=== PATIENT | female | born 1995 | race Caucasian/White ===

== ENCOUNTER 2017-04-15 12:11 | Emergency (ER) | payer SELFPAY ==
[~2017-04-15] VITALS: Ht 170.2 cm; Wt 63.5 kg
[~2017-04-15 12:11] MED LIST: ACHD5005 PO; AMOX500C2 PO; AZIT-21 PO; MAGN500C15 PO; MECL-124 PO; NAPR-243 PO; NITR-65 PO; ONDA8TAB13 PO; PHEN100T26 PO; PRM25T PO; SULF-222 PO; TOPI50TA37 PO; TRAM50TA2 PO; TRM50T PO; [UNRECOGNIZED DRUG - REMARK]; birth control
--- OUTSIDE RECORDS SUMMARY | 2017-04-15 12:16 | XMS REPORT ---
Author CHAYITO [facility] eClinicalWorks Address Unknown Phone Unavailable Care Team Providers Care Company Manager Name Role Phone CHAYITO CORONADO Unavailable Allergies No Known Allergies Problems Problem Type Condition Code Onset Dates Condition Status Assessment Screening for tuberculosis Z11.1 Active Medications No Known Medications Procedures Procedure Coding System Code Date TB INTRADERMAL TEST CPT-4 20526 Mar 11, 2015 Results No Known Results Summary Purpose eClinicalWorks Submission
--- OUTSIDE RECORDS SUMMARY | 2017-04-15 12:16 | XMS REPORT ---
Author Author CHAYITO CORONADO [facility] Address [address] [place] [address] Care Team Providers Care Liquor Clerk Name Role Phone CHAYITO CORONADO Unavailable PROBLEMS Unknown Problems ALLERGIES No Information SOCIAL HISTORY Never Assessed PLAN OF CARE VITAL SIGNS MEDICATIONS No Known Medications RESULTS No Results PROCEDURES Procedure Date Ordered Result Body Site FLUARIX QUAD P-FREE 3 AND UP .50 2015Jun 01, 2016 SINGLE IMMUNIZATION ADMIN Jun 01, 2016 IMMUNIZATIONS Vaccine Route Administration Date Status FLUARIX QUAD P-FREE 3 AND UP .50 2015 IM Intramuscular Jun 01, 2016 Administered MEDICAL (GENERAL) HISTORY Type Description Date Medical History Migraines Surgical History Neck surgery to remove tumors 2008 Hospitalization History Surgery
--- OUTSIDE RECORDS SUMMARY | 2017-04-15 12:16 | XMS REPORT ---
Author Author CHAYITO CORONADO [facility] Address [address] [place] [address] Care Team Providers Care Manager Division Name Role Phone CHAYITO CORONADO Unavailable PROBLEMS Unknown Problems ALLERGIES No Known Allergies SOCIAL HISTORY No smoking Hx information available PLAN OF CARE Activity Details Follow Up 48-72 hours Reason: VITAL SIGNS MEDICATIONS No Known Medications RESULTS No Results PROCEDURES Procedure Date Ordered Related Diagnosis Body Site TB INTRADERMAL 2016-04-20 N/A TB INTRADERMAL TEST Apr 20, 2016 IMMUNIZATIONS No Known Immunizations
--- OUTSIDE RECORDS SUMMARY | 2017-04-15 12:16 | XMS REPORT | Clinical Summary ---
Author Author [facility] Address Unknown Phone Unavailable Care Team Providers Care Print Decorator Name Role Phone PCP Unavailable Source Comments Some departments are not documenting in the electronic medical record. If you do not see the information that you expected, contact Release of Information in the Health Information Management department at [phone] for further assistance in locating additional records.[facility] Allergies No Known Allergies Current Medications Prescription Sig. Disp. Refills Start End Date Status Date ACETAMINOPHEN (TYLENOL Take by mouth As Needed. Active PO) magnesium oxide (MAG-OX) Take 1 Tab by mouth 30 Tab 6 05/15/19 Active 400 mg tabletIndications: daily. 16 Intractable chronic migraine without aura and without status migrainosus SUMAtriptan (IMITREX) 50 TAKE 1 TABLET BY MOUTH AT 10 Tab 2 07/22/19 Active mg tabletIndications: ONSET OF HEADACHE. REPEAT 16 Intractable chronic ONCE AFTER 2 HOURS migraine without aura and NEEDED. TAKE NO MORE THAN without status 2 TABLETS IN 24 HOURS migrainosus topiramate (TOPAMAX) 50 Take 1.5 Tabs by mouth 270 Tab 0 08/09/19 Active mg tabletIndications: twice daily. 17 Intractable chronic migraine without aura and without status migrainosus desogestrel-ethinyl Take 1 tablet by mouth Active estradiol (DESOGEN; daily. ORTHO-CEPT (28); APRI; SOLIA; RECLIPSEN (28); EMOQUETTE) tablet Active Problems Problem Noted Date Chronic migraine without aura without status migrainosus, not intractable Abnormal MRI, cervical spine 12/30/2015 Loss of weight 12/30/2015 Neck mass 01/05/2009 Family History Relation Name Status Comments Brother Alive Father Alive Mother Alive Sister Alive Social History Tobacco Use Types Packs/Day Years Used Date Never Smoker Smokeless Tobacco: Never Used Tobacco Cessation: Counseling Given: No Alcohol Use Drinks/Week oz/Week Comments No 0 Standard 0.0 drinks or equivalent Sex Assigned at Date Recorded Not on file Last Filed Vital Signs Vital Sign Reading Time Taken Blood Pressure 101/58 01/04/2017 9:28 AM CDT Pulse 62 01/04/2017 9:28 AM CDT Temperature 37 C (98.6 F) 01/04/2017 9:28 AM CDT Respiratory Rate 16 01/04/2017 9:28 AM CDT Oxygen Saturation 99% 01/04/2017 9:28 AM CDT Inhaled Oxygen - - Concentration Weight 71.2 kg (157 lb) 01/04/2017 9:28 AM CDT Height 170.2 cm (5' 7") 01/04/2017 9:28 AM CDT Body Mass Index 24.59 01/04/2017 9:28 AM CDT Plan of Treatment Health Maintenance Due Date Last Done Comments PHYSICAL (COMPREHENSIVE) 2004 EXAM HPV VACCINES (1 of 3 - 2008 Female 3 Dose Series) PERTUSSIS VACCINE 2008 TETANUS VACCINE 2014 INFLUENZA VACCINE 11/08/2016 Results Not on filefrom Last 3 Months
--- OUTSIDE RECORDS SUMMARY | 2017-04-15 12:16 | XMS REPORT | Continuity of Care Document ---
Author Author [facility] Address Unknown Phone Unavailable Care Team Providers Care Program Scheduler Name Role Phone [facility] Unavailable Unavailable Problems Medications Allergies, Adverse Reactions, Alerts Immunizations Results Vital Signs Encounters Location Location Details Encounter Type Encounter Number Reason For Visit Attending Provider ADM Date DC Date Status Source OUTPATIENT [id number] PLACIDO BENAVIDES 06/13/20152015 Active [facility] OUTPATIENT [id number] PLACIDO BENAVIDES 01/04/2017 Active [facility] O 01/07/2017 Active [facility] OUTPATIENT [id number] PLACIDO BENAVIDES 01/07/20172016 Active [facility] Procedures Plan of Care Social History Assessment and Plan Family History Advance Directives Functional Status
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
--- NOTE | 2017-04-15 12:24 | ED General ---
General Chief Complaint: Abdominal/GI Problems Stated Complaint: N/V Source of Information: Patient Exam Limitations: No Limitations History of Present Illness Time Seen by Provider: 12:23 Initial Comments To ER with nausea and vomiting for 3 months. Symptoms are worse today. She denies diarrhea or abdominal pain. She denies cough. She reports unintentional weight loss of 80-90 pounds over the past 6-7 months. She smokes one pack of cigarettes per day. She has not followed up with her primary care provider for this because her mother who accompanies her states "she doesn't have a doctor". She is adopted and does not know her family history. Timing/Duration: Other (months) Severity: Moderate Associated Systoms: Nausea/Vomiting Allergies and Home Medications Allergies Coded Allergies: No Known Drug Allergies (Unverified , 10/04/08) Home Medications Ondansetron 8 Mg Tab.rapdis, 8 MG PO Q6H PRN for NAUSEA/VOMITING-1ST LINE, #10 Ref 0 Prescribed by: PATRICIO LEDBETTER on 02/18/17 1837 Constitutional: see HPI EENTM: see HPI Respiratory: no symptoms reported Cardiovascular: no symptoms reported Genitourinary: no symptoms reported Musculoskeletal: no symptoms reported Skin: no symptoms reported Psychiatric/Neurological: No Symptoms Reported Hematologic/Lymphatic: No Symptoms Reported Past Colcxxl-Rswdbg-Huntml Hx Patient Social History Type Used: Cigarettes Recent Foreign Travel: No Contact w/Someone Who Travel: No Recent Hopitalizations: No Immunizations Up To Date Tetanus Booster (TDap): Less than 5yrs PED Vaccines UTD: Yes Seasonal Allergies Seasonal Allergies: No Surgeries History of Surgeries: Yes (C 3-7 TUMOR REMOVAL) Respiratory History of Respiratory Disorde: No Cardiovascular History of Cardiac Disorders: No Neurological History of Neurological Disord: Yes (NEUROFIBROMYTOSIS) Neurological Disorders: Headaches /Migraines Reproductive System Hx Reproductive Disorders: No Sexually Transmitted Disease: No Genitourinary Genitourinary Disorders: UTI-Chronic Gastrointestinal History of Gastrointestinal Di: No Musculoskeletal History of Musculoskeletal Dis: No Endocrine History of Endocrine Disorders: No Cancer History of Cancer: No Psychosocial History of Psychiatric Problem: No Integumentary History of Skin or Integumenta: No Blood Transfusions History of Blood Disorders: No Family Medical History Significant Family History: No Pertinent Family Hx Physical Exam Vital Signs Vital Sign - Last 12Hours 04/15/17 12:12 Temp 96.6 Pulse 83 Resp 18 B/P (MAP) 121/86 Capillary Refill : General Appearance: No Apparent Distress, WD/WN Eyes: Bilateral Eye Normal Inspection, Bilateral Eye PERRL, Bilateral Eye EOMI HEENT: PERRL/EOMI, TMs Normal Neck: Full Range of Motion, Normal Inspection Respiratory: Normal Breath Sounds, No Accessory Muscle Use, No Respiratory Distress Cardiovascular: Regular Rate, Rhythm, Normal Peripheral Pulses Gastrointestinal: Normal Bowel Sounds, Non Tender, Soft Extremity: Normal Capillary Refill, Normal Inspection Neurologic/Psychiatric: Alert, Oriented x3, No Motor/Sensory Deficits Skin: Normal Color, Warm/Dry Progress/Results/Core Measures Suspected Sepsis SIRS Temperature: Pulse: Respiratory Rate: Laboratory Tests 04/15/17 12:15: White Blood Count 10.1 Blood Pressure / Mean: Laboratory Tests 04/15/17 12:15: Creatinine 0.64, Platelet Count 240, Total Bilirubin 0.5 Results/Orders Lab Results Laboratory Tests Test 04/15/17 12:15 04/15/17 12:21 Range/Units White Blood Count 10.1 4.3-11.0 10^3/uL Red Blood Count 4.75 4.35-5.85 10^6/uL Hemoglobin 13.8 11.5-16.0 G/DL Hematocrit 37 35-52 % Mean Corpuscular Volume 78 L 80-99 FL Mean Corpuscular Hemoglobin 29 25-34 PG Mean Corpuscular Hemoglobin Concent 37 H 32-36 G/DL Red Cell Distribution Width 13.4 10.0-14.5 % Platelet Count 240 130-400 10^3/uL Mean Platelet Volume 10.0 7.4-10.4 FL Neutrophils (%) (Auto) 70 42-75 % Lymphocytes (%) (Auto) 22 12-44 % Monocytes (%) (Auto) 6 0-12 % Eosinophils (%) (Auto) 2 0-10 % Basophils (%) (Auto) 0 0-10 % Neutrophils # (Auto) 7.1 1.8-7.8 X 10^3 Lymphocytes # (Auto) 2.2 1.0-4.0 X 10^3 Monocytes # (Auto) 0.6 0.0-1.0 X 10^3 Eosinophils # (Auto) 0.2 0.0-0.3 10^3/uL Basophils # (Auto) 0.0 0.0-0.1 10^3/uL Sodium Level 139 135-145 MMOL/L Potassium Level 3.3 L 3.6-5.0 MMOL/L Chloride Level 106 98-107 MMOL/L Carbon Dioxide Level 22 21-32 MMOL/L Anion Gap 11 5-14 MMOL/L Blood Urea Nitrogen 5 L 7-18 MG/DL Creatinine 0.64 0.60-1.30 MG/DL Estimat Glomerular Filtration Rate > 60 BUN/Creatinine Ratio 8 Glucose Level 94 70-105 MG/DL Calcium Level 9.2 8.5-10.1 MG/DL Total Bilirubin 0.5 0.1-1.0 MG/DL Aspartate Amino Transf (AST/SGOT) 11 5-34 U/L Alanine Aminotransferase (ALT/SGPT) 8 0-55 U/L Alkaline Phosphatase 56 40-136 U/L Total Protein 6.6 6.4-8.2 GM/DL Albumin 3.8 3.2-4.5 GM/DL Lipase 20 8-78 U/L Thyroid Stimulating Hormone (TSH) 1.74 0.35-4.94 UIU/ML Free Thyroxine 1.24 0.70-1.48 NG/DL Human Chorionic Gonadotropin, Quant [id number] H <5 MIU/ML Urine Color YELLOW Urine Clarity SLIGHTLY CLOUDY Urine pH 6 5-9 Urine Specific [place] 1.020 1.016-1.022 Urine Protein 2+ H NEGATIVE Urine Glucose (UA) NEGATIVE NEGATIVE Urine Ketones 1+ H NEGATIVE Urine Nitrite NEGATIVE NEGATIVE Urine Bilirubin NEGATIVE NEGATIVE Urine Urobilinogen 1 NORMAL MG/DL Urine Leukocyte Esterase 1+ H NEGATIVE Urine RBC (Auto) NEGATIVE NEGATIVE Urine RBC NONE /HPF Urine WBC 5-10 H /HPF Urine Squamous Epithelial Cells 5-10 /HPF Urine Crystals NONE /LPF Urine Bacteria LARGE H /HPF Urine Casts PRESENT /LPF Urine White Blood Cell Casts 0-2 H /LPF Urine Mucus LARGE H /LPF Urine Culture Indicated YES Urine Opiates Screen NEGATIVE NEGATIVE Urine Oxycodone Screen NEGATIVE NEGATIVE Urine Methadone Screen NEGATIVE NEGATIVE Urine Propoxyphene Screen NEGATIVE NEGATIVE Urine Barbiturates Screen NEGATIVE NEGATIVE Ur Tricyclic Antidepressants Screen NEGATIVE NEGATIVE Urine Phencyclidine Screen NEGATIVE NEGATIVE Urine Amphetamines Screen NEGATIVE NEGATIVE Urine Methamphetamines Screen NEGATIVE NEGATIVE Urine Benzodiazepines Screen NEGATIVE NEGATIVE Urine Cocaine Screen NEGATIVE NEGATIVE Urine Cannabinoids Screen POSITIVE H NEGATIVE My Orders Orders - DEZ DURAN APRN Cbc With Automated Diff (04/15/17 12:20) Comprehensive Metabolic Panel (04/15/17 12:20) Lipase (04/15/17 12:20) Ua Culture If Indicated (04/15/17 12:20) Urine Bedside (04/15/17 12:20) Thyroid Stimulating Hormone (04/15/17 12:20) Free T4 (Free Thyroxine) (04/15/17 12:20) Drug Screen Stat (Urine) (04/15/17 12:20) Saline Lock/Iv-Start (04/15/17 12:20) Ns Iv 1000 Ml (Sodium Chloride 0.9%) (04/15/17 12:30) Ondansetron Injection (Zofran Injectio (04/15/17 12:30) Hcg,Quantitative (04/15/17 12:27) Urine Culture (04/15/17 12:21) Us Ob Single Fetus<14 [id number] (04/15/17 12:27) Medications Given in ED Current Medications Medications Dose Ordered Sig/Suzette Route Start Time Stop Time Status Last Admin Dose Admin Ondansetron HCl 8 mg ONCE ONCE IVP 04/15/17 12:30 04/15/17 12:31 DC 04/15/17 12:40 8 MG Vital Signs/I&O Vital Sign - Last 12Hours 04/15/17 12:12 Temp 96.6 Pulse 83 Resp 18 B/P (MAP) 121/86 Capillary Refill : Departure Impression Impression: Primary Impression: Intrauterine Additional Impressions: Urinary tract infection Unintentional weight loss Disposition: 01 HOME, SELF-CARE Condition: Stable Departure-Patient Inst. Decision time for Depature: 13:16 Referrals: ALYX REECE JOHN M MD (PCP/Family) Primary Care Physician SIRISHA LYON MD, ANGELA C DO Patient Instructions: Medications and , Nausea and Vomiting of Add. Discharge Instructions: 1. You must call a physician on Monday to make an appointment to be seen within the next few weeks. You should consider today to have been your last day of cigarettes and marijuana smoking, do not smoke anything from this point on. Go to [employer] and purchase an nwbn-uan-[id number] vitamin and take this daily as directed. If you have daily nausea U should combine vitamin B 6 and Unisom. Scripts Cephalexin (Keflex) 500 Mg Capsule 500 MG PO TID, #21 CAP Prov: DEZ DURAN APRN 04/15/17 Work/School Note: Local [employer]ing DEZ DURAN APRN Apr 15, 2017 12:24
[2017-04-15 12:28] LABS: BASOPHILS % (AUTO) 0 % (0-10); EOSINOPHILS # (AUTO) 0.2 10^3/uL (0.0-0.3); EOSINOPHILS % (AUTO) 2 % (0-10); HEMATOCRIT 37 % (35-52); HEMOGLOBIN 13.8 G/DL (11.5-16.0); LYMPHOCYTES # (AUTO) 2.2 X 10^3 (1.0-4.0); LYMPHOCYTES % (AUTO) 22 % (12-44); MEAN CORPUSCULAR HEMOGLOBIN 29 PG (25-34); MEAN CORPUSCULAR HGB CONC 37 G/DL (32-36); MEAN CORPUSCULAR VOLUME 78 FL (80-99); MONOCYTES # (AUTO) 0.6 X 10^3 (0.0-1.0); MONOCYTES % (AUTO) 6 % (0-12); NEUTROPHILS # (AUTO) 7.1 X 10^3 (1.8-7.8); NEUTROPHILS % (AUTO) 70 % (42-75); PLATELET COUNT 240 10^3/uL (130-400); RED BLOOD COUNT 4.75 10^6/uL (4.35-5.85); RED CELL DISTRIBUTION WIDTH 13.4 % (10.0-14.5); WHITE BLOOD COUNT 10.1 10^3/uL (4.3-11.0)
[2017-04-15] MEDS ORDERED: NS IV 1000 ML 1,000 ML IV SCH (12:30)
[2017-04-15] MEDS ORDERED: ONDANSETRON 4 MG/2 ML (SDV) Z0FRAN IVP ONE (12:30)
[2017-04-15 12:38] LABS: BILIRUBIN,URINE NEGATIVE (NEGATIVE); CLARITY,URINE SLIGHTLY CLOUDY; COLOR,URINE YELLOW; GLUCOSE, URINE (UA) NEGATIVE (NEGATIVE); KETONES,URINE 1+ (NEGATIVE); LEUKOCYTE ESTERASE ,URINE 1+ (NEGATIVE); NITRITE,URINE NEGATIVE (NEGATIVE); PH,URINE 6 (5-9); PROTEIN,URINE 2+ (NEGATIVE); UROBILINOGEN,URINE 1 MG/DL (NORMAL)
[2017-04-15 12:49] LABS: ALANINE AMINOTRANSFERASE 8 U/L (0-55); ALBUMIN 3.8 GM/DL (3.2-4.5); ALKALINE PHOSPHATASE 56 U/L (40-136); BILIRUBIN,TOTAL 0.5 MG/DL (0.1-1.0); BUN/CREATININE RATIO 8; CALCIUM 9.2 MG/DL (8.5-10.1); CARBON DIOXIDE 22 MMOL/L (21-32); CHLORIDE 106 MMOL/L (98-107); CREATININE SERUM 0.64 MG/DL (0.60-1.30); GFR ESTIMATED > 60; GLUCOSE 94 MG/DL (70-105); LIPASE 20 U/L (8-78); POTASSIUM 3.3 MMOL/L (3.6-5.0); SODIUM 139 MMOL/L (135-145); TOTAL PROTEIN 6.6 GM/DL (6.4-8.2)
[2017-04-15 12:51] LABS: AMPHETAMINE SCREEN, URINE NEGATIVE (NEGATIVE); BARBITURATE SCREEN URINE NEGATIVE (NEGATIVE); BENZODIAZEPINES SCREEN URINE NEGATIVE (NEGATIVE); CANNABINOID SCREEN, URINE POSITIVE (NEGATIVE); COCAINE SCREEN URINE NEGATIVE (NEGATIVE); METHADONE STAT NEGATIVE (NEGATIVE); METHAMPHETAMINE SCREEN URINE S NEGATIVE (NEGATIVE); OPIATE SCREEN URINE NEGATIVE (NEGATIVE); OXYCODONE STAT NEGATIVE (NEGATIVE); PROPOXYPHENE STAT NEGATIVE (NEGATIVE); TRICYCLIC ANTIDEPRESSANTS SCRE NEGATIVE (NEGATIVE)
[2017-04-15 12:52] LABS: BACTERIA,URINE LARGE /HPF; WHITE BLOOD CELL CASTS, URINE 0-2 /LPF
[2017-04-15 13:09] LABS: FREE T4 (FREE THYROXINE) 1.24 NG/DL (0.70-1.48)
[2017-04-15] MEDS ORDERED: CEPH-507 PO (13:20)
--- NOTE | 2017-04-15 13:29 | Diagnostic Imaging Report ---
PROCEDURE: US OB SINGLE FETUS <14 WKS. TECHNIQUE: Multiple real-time grayscale images were obtained over the gravid uterus in various projections. INDICATION: Cramping. FINDINGS: There is a single living intrauterine . [place]-rump length is 2.43 cm. This correlates with gestational age of 9 weeks 2 days. Heart rate is 158 beats per minute and regular. Neither ovary was visualized. There are no adnexal masses. No free pelvic fluid. There appears to be normal volume of amniotic fluid. IMPRESSION: Single living intrauterine with sonographically estimated gestational age of 9 weeks 2 days and estimated date of confinement of 11/16/2017. Dictated by: Dictated on workstation # [id number]
== END 2017-04-15 13:31 | disposition home or self-care (01) ==
LOC: EDUNIT# 12:11 → ER 12:12
DX: O23.41 Unspecified infection of urinary tract in pregnancy, first trimester (principal); O99.89 Other specified diseases and conditions complicating pregnancy, childbirth and the puerperium; R63.4 Abnormal weight loss; O99.351 Diseases of the nervous system complicating pregnancy, first trimester; G43.909 Migraine, unspecified, not intractable, without status migrainosus; O99.331 Smoking (tobacco) complicating pregnancy, first trimester; F17.210 Nicotine dependence, cigarettes, uncomplicated; Z3A.09 9 weeks gestation of pregnancy; Z86.03 Personal history of neoplasm of uncertain behavior; Z98.890 Other specified postprocedural states
CPT/HCPCS: 36415; 76801; 80053; 80306; 81000; 83690; 84439; 84443; 84702; 84703; 85025; 87088

== ENCOUNTER → 2017-06-27 | Outpatient (CLI) | payer MEDICAID ==
[~2017-06-27] MED LIST changes: +CEPH-507 PO
--- NOTE | 2017-06-27 14:15 | Diagnostic Imaging Report ---
INDICATION: . TECHNIQUE: Multiple real-time grayscale images were obtained over the gravid uterus. COMPARISON: 04/15/2017. FINDINGS: The previous exam of 04/15/2017 noted a single live of approximately 9 weeks 2 days gestation +/-1 week. On this study, the fetus is again identified. The fetus is cephalic in presentation. heart motion was noted and a rate of 146 BPM was recorded. There were no abnormalities identified. The growth parameters are fairly uniform and have progressed as expected since the prior exam. The estimated weight is in the 40th percentile. The placenta is posterior and there is no previa. The amniotic fluid volume is within normal limits. IMPRESSION: 1. There is a single live fetus of approximately 19 weeks 5 days gestation +/-1 week. The EDC remains November 16, 2017. 2. There were no abnormalities identified. 3. The growth parameters have progressed as expected since the prior exam. Biometrical measurements are as follows: Biparietal 4.46 cm, age 19 weeks 4 days. Head circumference 16.60 cm, age 19 weeks 3 days. Abdominal circumference 14.10 cm, age 19 weeks 4 days. Femur length 3.08 cm, age 19 weeks 4 days. Sonographic estimate age: 19 weeks 4 days. Sonographic estimated date of delivery: 11-17-2017. Estimated Weight: 295 gm (+/- 43 gm). LMP percentile: 40%. heart rate: 146 beats per minute. number: 1 of 1. Dictated by: Dictated on workstation # [id number]
== END ==
LOC: RAD 12:58
PROVIDERS: ATTEND Obstetrics & Gynecology
DX: Z34.92 Encounter for supervision of normal pregnancy, unspecified, second trimester (principal); Z3A.19 19 weeks gestation of pregnancy
CPT/HCPCS: 76805

== ENCOUNTER 2017-10-24 22:12 | Inpatient (IN) | payer MEDICAID ==
[~2017-10-24] VITALS: Ht 170.2 cm; Wt 81.4 kg
[2017-10-24 22:30] VITALS: BP 114/78
[2017-10-24 22:43] LABS: BILIRUBIN,URINE NEGATIVE (NEGATIVE); CLARITY,URINE CLEAR; COLOR,URINE YELLOW; GLUCOSE, URINE (UA) NEGATIVE (NEGATIVE); KETONES,URINE NEGATIVE (NEGATIVE); LEUKOCYTE ESTERASE ,URINE NEGATIVE (NEGATIVE); NITRITE,URINE NEGATIVE (NEGATIVE); PH,URINE 6.5 (5-9); PROTEIN,URINE NEGATIVE (NEGATIVE); UROBILINOGEN,URINE NORMAL (NORMAL)
[2017-10-24] MEDS ORDERED: AMPICILLIN INJECTION 2,000 MG in NS (IVPB) 50 ML IV SCH (22:46)
[2017-10-24] MEDS ORDERED: NS (IVPB) 50 ML ONE (22:49)
[2017-10-24] MEDS ORDERED: AMPICILLIN 2000 MG INJECTION (IM/IV) ONE (22:49)
[2017-10-24 22:51] LABS: BACTERIA,URINE TRACE /HPF; RBC,URINE 0-2 /HPF
[2017-10-24] MEDS ORDERED: MINERAL OIL CONCENTRATE 99.9% 15 ML UDC TOP PRN (23:00)
[2017-10-24] MEDS: D5 LR IV SOLUTION 1,000 ML IV SCH (23:12)
[2017-10-24 23:19] LABS: BASOPHILS % (AUTO) 0 % (0-10); EOSINOPHILS # (AUTO) 0.2 10^3/uL (0.0-0.3); EOSINOPHILS % (AUTO) 2 % (0-10); HEMATOCRIT 34 % (35-52); HEMOGLOBIN 11.9 G/DL (11.5-16.0); LYMPHOCYTES # (AUTO) 2.4 X 10^3 (1.0-4.0); LYMPHOCYTES % (AUTO) 26 % (12-44); MEAN CORPUSCULAR HEMOGLOBIN 30 PG (25-34); MEAN CORPUSCULAR HGB CONC 35 G/DL (32-36); MEAN CORPUSCULAR VOLUME 88 FL (80-99); MEAN PLATELET VOLUME 10.8 FL (7.4-10.4); MONOCYTES # (AUTO) 0.8 X 10^3 (0.0-1.0); MONOCYTES % (AUTO) 8 % (0-12); NEUTROPHILS # (AUTO) 5.8 X 10^3 (1.8-7.8); NEUTROPHILS % (AUTO) 63 % (42-75); PLATELET COUNT 212 10^3/uL (130-400); RED BLOOD COUNT 3.91 10^6/uL (4.35-5.85); RED CELL DISTRIBUTION WIDTH 12.9 % (10.0-14.5); WHITE BLOOD COUNT 9.2 10^3/uL (4.3-11.0)
--- OUTSIDE RECORDS SUMMARY | 2017-10-24 23:51 | XMS REPORT ---
Author Author CONSTANTINE ARCEO Organization [facility] Address [address] [place] [address] Care Team Providers Care Greenhouse Assistant Name Role Phone CONSTANTINE ARCEO Unavailable PROBLEMS Unknown Problems ALLERGIES No Information ENCOUNTERS Encounter Location Date Diagnosis [facility] [id number] [place] [phone] May, [facility] [id number] [place] [phone] Oct, Sore throat J02.9 and Strep pharyngitis J02.0 [facility] [id number] [place] [phone] May, Encounter for immunization Z23 [facility] [id number] [place] [phone] Apr, Visit for TB skin test Z11.1 and Screening for tuberculosis Z11.1 [facility] [id number] [place] [phone] Jul, Bronchitis J40 [facility] [address] [place], [place] [id number] [place] [phone] Mar, Screening for tuberculosis Z11.1 IMMUNIZATIONS No Known Immunizations SOCIAL HISTORY Never Assessed REASON FOR VISIT Presumptive Eligibility-APPROVED PLAN OF CARE VITAL SIGNS MEDICATIONS Unknown Medications RESULTS No Results PROCEDURES No Known procedures INSTRUCTIONS MEDICATIONS ADMINISTERED No Known Medications MEDICAL (GENERAL) HISTORY Type Description Date Medical History Migraines Surgical History Neck surgery to remove tumors 2008 Hospitalization History Surgery
--- OUTSIDE RECORDS SUMMARY | 2017-10-24 23:51 | XMS REPORT | Clinical Summary ---
Author Author [facility] Organization [facility] Address Unknown Phone Unavailable Care Team Providers Care Log Loader Name Role Phone Joaquin Emery MD Unavailable Humberto Merino MD Unavailable Manny De Luna MD PCP Brayden Garrison DO Unavailable Source Comments Some departments are not documenting in the electronic medical record. If you do not see the information that you expected, contact Release of Information in the Health Information Management department at [phone] for further assistance in locating additional records.[facility] Allergies No Known Allergies Current Medications Prescription [...] Female 3 Dose Series) PERTUSSIS VACCINE 2008 HIV SCREENING 2012 TETANUS VACCINE 2014 INFLUENZA VACCINE 01/08/2018 Results Not on filefrom Last 3 Months
--- OUTSIDE RECORDS SUMMARY | 2017-10-24 23:51 | XMS REPORT ---
Author Author BAUTISTA VAN Organization [facility] Address [address] [place] [address] Care Team Providers Care Spray Cementer Name Role Phone BAUTISTA VAN Unavailable PROBLEMS Unknown Problems ALLERGIES No Known Allergies ENCOUNTERS Encounter Location Date Diagnosis [facility] [id number] [place] [phone] May, [facility] [id number] [place] [phone] Oct, Sore throat J02.9 and Strep pharyngitis J02.0 [facility] [id number] [place] [phone] May, Encounter for immunization Z23 [facility] [id number] [place] [phone] Apr, Visit for TB skin test Z11.1 and Screening for tuberculosis Z11.1 [facility] [id number] [place] [phone] Jul, Bronchitis J40 [facility] [id number] [place] [phone] Mar, Screening for tuberculosis Z11.1 IMMUNIZATIONS No Known Immunizations SOCIAL HISTORY Never Assessed REASON FOR VISIT sore throat for a couple days JStrasserRN PLAN OF CARE Activity Details Follow Up prn Reason: VITAL SIGNS Height 67 in 2016-10-13 Weight 165.2 lbs 2016-10-13 Temperature 97.2 degrees Fahrenheit 2016-10-13 Heart Rate 84 bpm 2016-10-13 Respiratory Rate 20 2016-10-13 BMI 25.87 kg/m2 2016-10-13 Blood pressure systolic 110 mmHg 2016-10-13 Blood pressure diastolic 80 mmHg 2016-10-13 MEDICATIONS Medication Instructions Dosage Frequency Start Date End Date Duration Status Magnesium 500 MG Orally Once a day 1 tablet with a meal 24h Active Amoxicillin 500 MG Orally every 12 hrs 1 capsule 12h Oct, Oct, 10 day(s) Active RESULTS Name Result Date Reference Range STREP A (IN HOUSE) 2016-10-13 STREP A Control Lot # Exp date PROCEDURES Procedure Date Ordered Result Body Site STREP A ASSAY W/OPTIC October 13, 2016 INSTRUCTIONS MEDICATIONS ADMINISTERED No Known Medications MEDICAL (GENERAL) HISTORY Type Description Date Medical History Migraines Surgical History Neck surgery to remove tumors 2008 Hospitalization History Surgery
--- OUTSIDE RECORDS SUMMARY | 2017-10-24 23:52 | XMS REPORT | Continuity of Care Document ---
Author Author [facility] Organization [facility] Address Unknown Phone Unavailable Allergies Active Description Code Type Severity Reaction Onset Reported/Identified Relationship to Patient Clinical Status Yes No Known Drug Allergies [id number] Drug Allergy Mild N/A 10/04/2008 Medications There [...] Ot E958.8 SUICIDE/SELF-INJURY NEC 02/14/2013 DEZ DURAN PVC LOADER Ot 595.9 CYSTITIS NOS 02/14/2013 DEZ DURAN PVC LOADER Ot 788.1 DYSURIA 08/15/2013 DEZ DURAN PVC LOADER Ot 462 ACUTE PHARYNGITIS 05/13/2014 KATHERINE EM DO Ot 462 ACUTE PHARYNGITIS 08/04/2014 DEZ DURAN PVC LOADER Ot 682.3 CELLULITIS OF ARM 08/04/2014 DEZ DURAN PVC LOADER Ot 709.8 SKIN DISORDERS NEC 04/13/2015 ELIZABETH REED, PING Smith Ot G43.819 03/22/2016 PING JOHNSON MD Ot [...] Ot Y99.8 OTHER EXTERNAL CAUSE STATUS 02/18/2017 PING JOHNSON MD Ot G43.819 OTHER MIGRAINE, INTRACTABLE, WITHOUT STA 02/18/2017 PATRICIO CORTEZ Ot F17.210 NICOTINE DEPENDENCE, CIGARETTES, UNCOMPL 02/18/2017 PATRICIO CORTEZ Ot G43.909 MIGRAINE, UNSP, NOT INTRACTABLE, WITHOUT 02/18/2017 PATRICIO CORTEZ Ot R10.84 GENERALIZED ABDOMINAL PAIN 02/18/2017 PATRICIO CORTEZ Ot R11.2 NAUSEA WITH VOMITING, UNSPECIFIED 02/18/2017 PATRICIO CORTEZ Ot Z87.440 PERSONAL HISTORY OF URINARY (TRACT) INFE 04/15/2017 DEZ DURAN APRN Ot F17.210 NICOTINE DEPENDENCE, CIGARETTES, UNCOMPL 04/15/2017 DEZ DURAN APRN Ot G43.909 MIGRAINE, UNSP, NOT INTRACTABLE, WITHOUT 04/15/2017 DEZ DURAN APRN Ot O23.41 UNSP INFCT OF URINARY TRACT IN 04/15/2017 DEZ DURAN APRN Ot O99.331 SMOKING (TOBACCO) COMPLICATING 04/15/2017 DEZ DURAN APRN Ot O99.351 DISEASES OF THE NERVOUS SYS COMP PREGNAN 04/15/2017 DEZ DURAN APRN Ot O99.89 OTH DISEASES AND CONDITIONS COMPL PREG/C 04/15/2017 DEZ DURAN APRN Ot R11.2 NAUSEA WITH VOMITING, UNSPECIFIED 04/15/2017 DEZ DURAN APRN Ot R63.4 ABNORMAL WEIGHT LOSS 04/15/2017 DEZ DURAN APRN Ot Z3A.09 9 WEEKS GESTATION OF 04/15/2017 DEZ DURAN APRN Ot Z86.03 PERSONAL HISTORY OF NEOPLASM OF UNCERTAI 04/15/2017 DEZ DURAN APRN Ot Z98.890 OTHER SPECIFIED POSTPROCEDURAL STATES 04/17/2017 DEZ DURAN APRN Ot O23.41 UNSP INFCT OF URINARY TRACT IN 04/17/2017 DEZ DURAN APRN Ot O99.89 OTH DISEASES AND CONDITIONS COMPL PREG/C 04/17/2017 DEZ DURAN APRN Ot R11.2 NAUSEA WITH VOMITING, UNSPECIFIED 04/17/2017 DEZ DURAN APRN Ot R63.4 ABNORMAL WEIGHT LOSS 04/17/2017 DEZ DURAN APRN Ot Z3A.09 9 WEEKS GESTATION OF 06/28/2017 FENECH DO, LAYX Yoon Ot Z34.92 ENCNTR FOR SUPRVSN OF NORMAL PREG, UNSP, 06/28/2017 FENECH DO, ALYX S Ot Z3A.19 19 WEEKS GESTATION OF 07/24/2017 FENECH DO, ALYX S Ot Z34.92 ENCNTR FOR SUPRVSN OF NORMAL PREG, UNSP, 07/24/2017 FENECH DO, ALYX Yoon Ot Z3A.19 19 WEEKS GESTATION OF Procedures There is no data. Results Test [...] urinalysis with reflex to culture NO NRG Complete blood count (CBC) with automated white blood cell (WBC) differential - 04/15/17 12:15 Blood leukocytes automated count (number/volume) 10.1 10*3/uL 4.3-11.0 Blood erythrocytes automated count (number/volume) 4.75 10*6/uL 4.35-5.85 Venous blood hemoglobin measurement (mass/volume) 13.8 g/dL 11.5-16.0 Blood hematocrit (volume fraction) 37 % 35-52 Automated erythrocyte mean corpuscular volume 78 [foz_us] 80-99 Automated erythrocyte mean corpuscular hemoglobin (mass per erythrocyte) 29 pg 25-34 Automated erythrocyte mean corpuscular hemoglobin concentration measurement ( mass/volume) 37 g/dL 32-36 Automated erythrocyte distribution width ratio 13.4 % 10.0-14.5 Automated blood platelet count (count/volume) 240 10*3/uL 130-400 Automated blood platelet mean volume measurement 10.0 [foz_us] 7.4-10.4 Automated blood neutrophils/100 leukocytes 70 % 42-75 Automated blood lymphocytes/100 leukocytes 22 % 12-44 Blood monocytes/100 leukocytes 6 % 0-12 Automated blood eosinophils/100 leukocytes 2 % 0-10 Automated blood basophils/100 leukocytes 0 % 0-10 Blood neutrophils automated count (number/volume) 7.1 10*3 1.8-7.8 Blood lymphocytes automated count (number/volume) 2.2 10*3 1.0-4.0 Blood monocytes automated count (number/volume) 0.6 10*3 0.0-1.0 Automated eosinophil count 0.2 10*3/uL 0.0-0.3 Automated blood basophil count (count/volume) 0.0 10*3/uL 0.0-0.1 Comprehensive metabolic panel - 04/15/17 12:15 Serum or plasma sodium measurement (moles/volume) 139 mmol/L 135-145 Serum or plasma potassium measurement (moles/volume) 3.3 mmol/L 3.6-5.0 Serum or plasma chloride measurement (moles/volume) 106 mmol/L 98-107 Carbon dioxide 22 mmol/L 21-32 Serum or plasma anion gap determination (moles/volume) 11 mmol/L 5-14 Serum or plasma urea nitrogen measurement (mass/volume) 5 mg/dL 7-18 Serum or plasma creatinine measurement (mass/volume) 0.64 mg/dL 0.60-1.30 Serum or plasma urea nitrogen/creatinine mass ratio 8 NRG Serum or plasma creatinine measurement with calculation of estimated glomerular filtration rate > NRG Serum or plasma glucose measurement (mass/volume) 94 mg/dL 70-105 Serum or plasma calcium measurement (mass/volume) 9.2 mg/dL 8.5-10.1 Serum or plasma total bilirubin measurement (mass/volume) 0.5 mg/dL 0.1-1.0 Serum or plasma alkaline phosphatase measurement (enzymatic activity/volume) 56 U/L 40-136 Serum or plasma aspartate aminotransferase measurement (enzymatic activity/ volume) 11 U/L 5-34 Serum or plasma alanine aminotransferase measurement (enzymatic activity/volume ) 8 U/L 0-55 Serum or plasma protein measurement (mass/volume) 6.6 g/dL 6.4-8.2 Serum or plasma albumin measurement (mass/volume) 3.8 g/dL 3.2-4.5 Lipase - 04/15/17 12:15 Lipase 20 U/L 8-78 THYROID STIMULATING HORMONE - 04/15/17 12:15 THYROID STIMULATING HORMONE 1.74 u[iU]/mL 0.35-4.94 Serum or plasma thyroxine (T4) free measurement (mass/volume) - 04/15/17 12:15 Serum or plasma thyroxine (T4) free measurement (mass/volume) 1.24 ng/dL 0.70-1.48 Serum or plasma choriogonadotropin measurement (units/volume) - 04/15/17 12:15 Serum or plasma choriogonadotropin measurement (units/volume) 05126 m[iU]/mL <5 Urine drug screening test - 04/15/17 12:21 Urine phencyclidine detection by screening method NEGATIVE NEGATIVE Urine benzodiazepines detection by screening method NEGATIVE NEGATIVE Urine cocaine detection NEGATIVE NEGATIVE Urine amphetamines detection by screening method NEGATIVE NEGATIVE Urine methamphetamine detection by screening method NEGATIVE NEGATIVE Urine cannabinoids detection by screening method POSITIVE NEGATIVE Urine opiates detection by screening method NEGATIVE NEGATIVE Urine barbiturates detection NEGATIVE NEGATIVE Screening urine tricyclic antidepressants detection NEGATIVE NEGATIVE Urine methadone detection by screening method NEGATIVE NEGATIVE Urine oxycodone detection NEGATIVE NEGATIVE Urine propoxyphene detection NEGATIVE NEGATIVE Complete urinalysis with reflex to culture - 04/15/17 12:21 Urine color determination YELLOW NRG Urine clarity determination SLIGHTLY CLOUDY NRG Urine pH measurement by test strip 6 5-9 Specific gravity of urine by test strip 1.020 1.016- 1.022 Urine protein assay by test strip, semi-quantitative 2+ NEGATIVE Urine glucose detection by automated test strip NEGATIVE NEGATIVE Erythrocytes detection in urine sediment by light microscopy NEGATIVE NEGATIVE Urine ketones detection by automated test strip 1+ NEGATIVE Urine nitrite detection by test strip NEGATIVE NEGATIVE Urine total bilirubin detection by test strip NEGATIVE NEGATIVE Urine urobilinogen measurement by automated test strip (mass/volume) 1 mg/dL NORMAL Urine leukocyte esterase detection by dipstick 1+ NEGATIVE Automated urine sediment erythrocyte count by microscopy (number/high power field) NONE NRG Automated urine sediment leukocyte count by microscopy (number/high power field ) [HPF] NRG Bacteria detection in urine sediment by light microscopy LARGE NRG Squamous epithelial cells detection in urine sediment by light microscopy 5-10 NRG Crystals detection in urine sediment by light microscopy NONE NRG Casts detection in urine sediment by light microscopy PRESENT NRG Mucus detection in urine sediment by light microscopy LARGE NRG Complete urinalysis with reflex to culture YES NRG WBC casts detection in urine sediment by light microscopy 0-2 NRG Bacterial urine culture - 04/15/17 12:21 URINE CULTURE RESULTS MORE THAN 3 ISOLATES NRG Complete urinalysis with reflex to culture - 10/24/17 22:15 Urine color determination YELLOW NRG Urine clarity determination CLEAR NRG Urine pH measurement by test strip 6.5 5-9 Specific gravity of urine by test strip 1.010 1.016- 1.022 Urine protein assay by test strip, semi-quantitative NEGATIVE NEGATIVE Urine glucose detection by automated test strip NEGATIVE NEGATIVE Erythrocytes detection in urine sediment by light microscopy 1+ NEGATIVE Urine ketones detection by automated test strip NEGATIVE NEGATIVE Urine nitrite detection by test strip NEGATIVE NEGATIVE Urine total bilirubin detection by test strip NEGATIVE NEGATIVE Urine urobilinogen measurement by automated test strip (mass/volume) NORMAL NORMAL Urine leukocyte esterase detection by dipstick NEGATIVE NEGATIVE Automated urine sediment erythrocyte count by microscopy (number/high power field) [HPF] NRG Automated urine sediment leukocyte count by microscopy (number/high power field ) [HPF] NRG Bacteria detection in urine sediment by light microscopy TRACE NRG Crystals detection in urine sediment by light microscopy NONE NRG Casts detection in urine sediment by light microscopy NONE NRG Mucus detection in urine sediment by light microscopy NEGATIVE NRG Complete urinalysis with reflex to culture NO NRG Complete blood count (CBC) with automated white blood cell (WBC) differential - 10/24/17 23:00 Blood leukocytes automated count (number/volume) 9.2 10*3/uL 4.3-11.0 Blood erythrocytes automated count (number/volume) 3.91 10*6/uL 4.35-5.85 Venous blood hemoglobin measurement (mass/volume) 11.9 g/dL 11.5-16.0 Blood hematocrit (volume fraction) 34 % 35-52 Automated erythrocyte mean corpuscular volume 88 [foz_us] 80-99 Automated erythrocyte mean corpuscular hemoglobin (mass per erythrocyte) 30 pg 25-34 Automated erythrocyte mean corpuscular hemoglobin concentration measurement ( mass/volume) 35 g/dL 32-36 Automated erythrocyte distribution width ratio 12.9 % 10.0-14.5 Automated blood platelet count (count/volume) 212 10*3/uL 130-400 Automated blood platelet mean volume measurement 10.8 [foz_us] 7.4-10.4 Automated blood neutrophils/100 leukocytes 63 % 42-75 Automated blood lymphocytes/100 leukocytes 26 % 12-44 Blood monocytes/100 leukocytes 8 % 0-12 Automated blood eosinophils/100 leukocytes 2 % 0-10 Automated blood basophils/100 leukocytes 0 % 0-10 Blood neutrophils automated count (number/volume) 5.8 10*3 1.8-7.8 Blood lymphocytes automated count (number/volume) 2.4 10*3 1.0-4.0 Blood monocytes automated count (number/volume) 0.8 10*3 0.0-1.0 Automated eosinophil count 0.2 10*3/uL 0.0-0.3 Automated blood basophil count (count/volume) 0.0 10*3/uL 0.0-0.1 Encounters ACCT No. Visit Date/Time Discharge Status Pt. Type Provider Facility Loc./Unit Complaint [id number] 06/27/2017 12:58:00 06/27/2017 23:59:59 CLS Outpatient ALYX REECE DO [facility] RAD Z33.1 [id number] 04/15/2017 12:12:00 04/15/2017 13:31:00 DIS Emergency DEZ DURAN APRN [facility] ER N/V [id number] 02/18/2017 16:44:00 02/18/2017 19:00:00 DIS Emergency PATRICIO CORTEZ [facility] ER STOMACH PAIN/NAUSEA [id number] 03/22/2016 13:50:00 03/22/2016 15:40:00 DIS Emergency PATRICIO CORTEZ [facility] ER RIGHT HAND INJURY [id number] 03/30/2015 16:59:00 03/30/2015 23:59:59 CLS Outpatient PING JOHNSON MD [facility] RAD PERSISTENT MIGRAINE [id number] 08/04/2014 21:22:00 08/04/2014 22:52:00 DIS Emergency DEZ DURAN PVC LOADER [facility] ER SPIDER BITE [id number] 05/13/2014 20:57:00 05/13/2014 22:40:00 DIS Emergency KATHERINE EM DO [facility] ER SORE THROAT [id number] 08/15/2013 21:56:00 08/15/2013 22:09:00 DIS Emergency DEZ DURAN APRN [facility] ER SORE THROAT, L EAR PAIN [id number] 02/14/2013 21:12:00 02/14/2013 23:10:00 DIS Emergency DEZ DURAN APRN [facility] ER PAINFUL URINATION [id number] 02/04/2013 16:50:00 02/04/2013 19:27:00 DIS Emergency PATRICIO CORTEZ [facility] ER KNUCKLE PAIN/SWOLLEN [id number] 08/20/2012 17:01:00 08/20/2012 20:12:00 DIS Emergency PATRICIO CORTEZ [facility] ER FALL POST ACL TEAR [id number] 08/12/2012 13:47:00 08/12/2012 23:59:59 CLS Outpatient [id number] 10/24/2017 22:43:00 ACT Inpatient FRITZ CARLSON DO [facility] LDRP LABOR [id number] 04/18/2012 16:11:00 Document Registration [id number] 03/26/2012 15:35:00 Document Registration [id number] 02/10/2012 17:26:00 Document Registration [id number] 12/26/2011 21:21:00 Document Registration [id number] 07/18/2011 21:05:00 Document Registration [id number] 12/13/2010 14:46:00 Document Registration [id number] 05/16/2017 11:20:00 05/16/2017 23:59:59 [facility] Outpatient [id number] 08/04/2014 21:23:04 ACT Document Registration
[2017-10-25] VITALS (59 sets, daily range): BP systolic 95–138; BP diastolic 53–91
[2017-10-25] MEDS ORDERED: AMPICILLIN INJECTION 1,000 MG in NS (IVPB) 50 ML IV SCH (03:00)
[2017-10-25] MEDS ORDERED: CATHETER FLUSH 10 ML SYR IV SCH ×2 (06:00→22:00)
[2017-10-25] MEDS ORDERED: OXYTOCIN/NORMAL SALINE 500 ML IV ONE (06:44)
[2017-10-25] MEDS ORDERED: OXYTOCIN/NORMAL SALINE 500 ML IV SCH ×2 (06:54→19:40)
[2017-10-25] MEDS: D5 LR IV SOLUTION 1,000 ML IV SCH ×2 (06:58→15:00)
--- NOTE | 2017-10-25 09:06 | History & Physical-OB ---
OB - Chief Complaint & HPI Date/Time Date of Admission: Date of Admission: Oct 24, 2017 at 10:43 pm Time Seen by Provider: 09:00 Chief Complaint/History OB-Reason for Admission/Chief: Rupture of Membranes Hx : 1 Hx Para: 0 Expected Date of Delivery: Nov 17, 2017 Gestational Age in Weeks: 36 Gestational Age in Days: 6 History of Labs B neg Antibody neg RI RPR NR HBsAg NR HIV NR GC GBS neg Allergies and Home Medications Allergies Coded Allergies: No Known Drug Allergies (Unverified , 10/04/08) Home Medications Cephalexin 500 Mg Capsule, 500 MG PO TID Prescribed by: DEZ DURAN on 04/15/17 1320 Ondansetron 8 Mg Tab.rapdis, 8 MG PO Q6H PRN for NAUSEA/VOMITING-1ST LINE Prescribed by: PATRICIO LEDBETTER on 02/18/17 1837 Patient Home Medication List Home Medication List Reviewed: Yes OB - History Hx of Present Care: Yes Ultrasounds: Normal mid trimester US Obstetrical Complications: None Medical Complications: None Delivery History Hx Blood Disorders: No Adverse Rxn to Tranfusion: No Patient Past Medical History neurofibromatosis Social History/Family History HIV/AIDS: No Recent Infectious Disease Expo: No Sexually Transmitted Disease: No Alcohol Use: Denies Use Recreational Drug Use: No Immunizations Hepatitis A: Yes Hepatitis B: Yes Tetanus Booster (TDap): Less than 5yrs OB - Admission Exam Physical Exam Vitals: Vital Signs 10/25/17 10/25/17 10/25/17 00:49 03:10 07:00 Temp 98.0 Pulse 68 Resp 18 B/P (MAP) 108/66 (80) O2 Delivery Room Air HEENT: NCAT Heart: Rhythm Normal Lungs: Clear Abdomen: Gravid Extremities: Normal Reflexes: Normal Cervical Dilatation: 1cm Effacement: 75% Station: -1 Membranes: Intact Amniotic Fluid: Clear Heart Rate: 130's Accelerations: Accelerations Present Decelerations: No Decelerations Short Term Variability: Present Cylinder Tester Variability: Average (6-25) Contractions on Admission: 6-10 Minutes Apart Intensity: Mild Labs Laboratory Tests Test 10/24/17 22:15 10/24/17 23:00 Range/Units Urine Color YELLOW Urine Clarity CLEAR Urine pH 6.5 5-9 Urine Specific [place] 1.010 L 1.016-1.022 Urine Protein NEGATIVE NEGATIVE Urine Glucose (UA) NEGATIVE NEGATIVE Urine Ketones NEGATIVE NEGATIVE Urine Nitrite NEGATIVE NEGATIVE Urine Bilirubin NEGATIVE NEGATIVE Urine Urobilinogen NORMAL NORMAL MG/DL Urine Leukocyte Esterase NEGATIVE NEGATIVE Urine RBC (Auto) 1+ H NEGATIVE Urine RBC 0-2 /HPF Urine WBC 2-5 /HPF Urine Crystals NONE /LPF Urine Bacteria TRACE /HPF Urine Casts NONE /LPF Urine Mucus NEGATIVE /LPF Urine Culture Indicated NO White Blood Count 9.2 4.3-11.0 10^3/uL Red Blood Count 3.91 L 4.35-5.85 10^6/uL Hemoglobin 11.9 11.5-16.0 G/DL Hematocrit 34 L 35-52 % Mean Corpuscular Volume 88 80-99 FL Mean Corpuscular Hemoglobin 30 25-34 PG Mean Corpuscular Hemoglobin Concent 35 32-36 G/DL Red Cell Distribution Width 12.9 10.0-14.5 % Platelet Count 212 130-400 10^3/uL Mean Platelet Volume 10.8 H 7.4-10.4 FL Neutrophils (%) (Auto) 63 42-75 % Lymphocytes (%) (Auto) 26 12-44 % Monocytes (%) (Auto) 8 0-12 % Eosinophils (%) (Auto) 2 0-10 % Basophils (%) (Auto) 0 0-10 % Neutrophils # (Auto) 5.8 1.8-7.8 X 10^3 Lymphocytes # (Auto) 2.4 1.0-4.0 X 10^3 Monocytes # (Auto) 0.8 0.0-1.0 X 10^3 Eosinophils # (Auto) 0.2 0.0-0.3 10^3/uL Basophils # (Auto) 0.0 0.0-0.1 10^3/uL OB - Assessment/Plan/Diagnosis Assessment Assessment: labor, rupture of membranes Admission Dx 21 yo @ 36.6 labor PROM GBS neg Admission Status: Inpatient Order (span 2 midnights) Reason for Inpatient Admission: labor Plan Plan: Expectant Management Induction Method: per Pitocin Protocol ALYX REECE DO Oct 25, 2017 9:06 am
[2017-10-25] MEDS ORDERED: HYDROmorphone 1 MG/ML (DILAUDID) 1 ML SYRINGE IV ONE (14:15)
[2017-10-25] MEDS ORDERED: HYDROmorphone 1 MG/ML (DILAUDID) 1 ML SYRINGE ONE (14:18)
[2017-10-25] MEDS ORDERED: ONDANSETRON 4 MG/2 ML (SDV) Z0FRAN ONE (15:43)
[2017-10-25] MEDS ORDERED: ONDANSETRON 4 MG/2 ML (SDV) Z0FRAN IVP PRN (15:45)
[2017-10-25] MEDS ORDERED: SUFENTA 0.6MCG/ML BUPIVA 0.125 100 ML ONE (16:06)
[2017-10-25] MEDS ORDERED: LACTATED RINGERS 1,000 ML IV ONE ×2 (16:06→22:43)
[2017-10-25] MEDS ORDERED: BUPIVACAINE 0.25% 30 ML (SENSORCAINE) VIAL ONE (16:19)
[2017-10-25] MEDS ORDERED: fentaNYL INJECTION 100 MCG/2 ML AMP ONE (16:19)
[2017-10-25] MEDS ORDERED: LIDOCAINE/EPI 2% 1:200,00 (XYLOCAINE) 10 ML VIAL ONE (19:14)
--- NOTE | 2017-10-25 19:40 | OB Labor & Delivery Record ---
L&D History Date of Service Date of Service: Oct 25, 2017 History Expected Date of Delivery: Nov 17, 2017 Gestational Age in Weeks: 36 Hx : 1 Hx Para: 0 Complications Events: Routine care Operative Indications (Cesarea: N/A-Vaginal Delivery Intrapartal Events: None L&D Stage1 Monitors and Tracing Monitor Mode: External Heart Rate: 125 Monitor Accelerations: Uniform Monitor Decelerations: Variable Custodial Variability: Average (6-10) Short Term Variability: Present Presentation: Vertex Vital Signs VS - Last 72 Hours, by Label 10/24/17 7 718 7 22:30 00:49 03:10 07:00 Temp 98.6 98.4 98.0 Pulse 99 66 69 68 Resp 16 16 18 B/P (MAP) 114/78 (90) 109/60 (76) 100/57 (71) 108/66 (80) O2 Delivery Room Air Room Air 10/25/1718 10/25/17 10/25/17 07:15 07:30 07:45 08:00 Temp 97.5 Pulse 69 72 68 89 Resp 18 18 18 18 B/P (MAP) 113/74 (87) 112/68 (83) 109/65 (80) 107/70 (82) O2 Delivery Room Air Room Air Room Air Room Air 18 718 7//18 7 08:15 08:30 08:45 09:00 Pulse 71 71 76 72 Resp 18 18 18 18 B/P (MAP) 108/63 (78) 113/69 (84) 107/62 (77) 106/64 (78) O2 Delivery Room Air Room Air Room Air Room Air 18 7/18 718/18 718 09:15 09:30 09:45 10:00 Pulse 66 71 76 61 Resp 18 18 18 18 B/P (MAP) 114/66 (82) 110/67 (81) 114/62 (79) 108/60 (76) O2 Delivery Room Air Room Air Room Air Room Air 18 7/18 7/18/18 18 10:15 10:30 10:45 11:00 Pulse 58 81 88 80 Resp 18 18 18 18 B/P (MAP) 100/59 (73) 104/61 (75) 110/63 (79) 119/70 (86) O2 Delivery Room Air Room Air Room Air Room Air 718/18 7/18/18 7/18/18 7/18/18 11:15 11:30 11:45 12:00 Temp 97.0 Pulse 65 78 62 78 Resp 18 18 18 18 B/P (MAP) 106/66 (79) 121/70 (87) 113/69 (84) 113/59 (77) O2 Delivery Room Air Room Air Room Air Room Air 718/18 7/18/18 7/18/18 7/18/18 12:15 12:30 12:45 13:00 Pulse 71 75 81 77 Resp 18 18 18 18 B/P (MAP) 116/64 (81) 113/65 (81) 118/71 (87) 115/72 (86) O2 Delivery Room Air Room Air Room Air Room Air 718/18 7/18/18 7/18/18 7/18/18 13:15 13:30 13:45 14:00 Pulse 61 72 99 61 Resp 18 18 18 18 B/P (MAP) 116/65 (82) 115/67 (83) 105/85 (92) 105/85 (92) O2 Delivery Room Air Room Air Room Air Room Air 7/18 7/18/18 7/18/18 7/1818 14:15 14:30 14:45 15:00 Temp 96.9 Pulse 65 64 75 89 Resp 18 18 18 20 B/P (MAP) 111/62 (78) 115/78 (90) 126/77 (93) 130/89 (103) O2 Delivery Room Air Room Air Room Air Room Air Rupture of Membranes Spontaneous Ruture of Membrane: Yes Amniotic Membrane Rupture Time: 2100 Amniotic Membrane Fluid Desc.: Clear Amniotic Fluid Membrane Tests: Nitrazine Positive Vaginal Bleeding Description: Normal Show Induction/Anesthesia Epidural Cath Placement - Time: 17:00 L&D Stage2 Stage Two Stage II Date: Oct 25, 2017 Monitors and Tracing Monitor Mode: External Heart Rate: 125 Monitor Accelerations: Uniform Monitor Decelerations: Variable Custodial Variability: Average (6-10) Short Term Variability: Present Position: Right Occiput Anterior Presentation: Vertex Cord Descript/Complications Cord Vessel Description: 3 Vessels Delivery Type Delivery Method: Spontaneous Vaginal Anterior Shoulder: Left Episiotomy/Perineal Laceration Laceraction(s)/Extensions: Yes Degree (describe repair) left labial laceration repaired using 3-0 rapide vicryl Condition of Infant Delivery 1 minute Comment: 9 5 minute Comment: 9 Notes Live male 6lbs 4 oz Condition of Infant Condition of : Living Exam: No Observed Abnormalities Resuscitation Resuscitation: N/A - Spontaneous Resp L&D Stage3 Stage Three Stage III Date: Oct 25, 2017 Pictocin Pitocin Administration mu/min: 16 Pitocin ml/hr: 16 Pitocin Administration Comment: 30 mu wide open at delivery of placenta Delivery Summary Summary Estimated blood loss (mL): 350 350 Attending at delivery: Alyx Reece DO Condition of Delivery Examined: Cervix Examined, Uterus Explored Post Hemorrhage: No Condition of Mother stable Condition of Infant (s) stable ALYX REECE DO Oct 25, 2017 7:40 pm
--- NOTE | 2017-10-25 19:42 | Discharge Inst-Women's Service ---
Discharge Inst-Women's Serv Depart Medication/Instructions New, Converted or Re-Newed RX: RX on Chart Consults/Follow Up Additional Follow Up: Yes Orders/Referrals Dr. Reece in 6 weeks Activity Activity: Activity as Tolerated Driving Instructions: No Driving for 1 Week NO SMOKING: NO SMOKING Nothing Inside Vagina: No Douching, No [place], No Tampons Diet Discharge Diet: No Restrictions Symptoms to Report to : Bleeding Excessive, Pain Increased, Fever Over 101 Degrees F, Vaginal Bleeding Increase, Questions/Concerns For Any Problems or Questions: Contact Your Physician Skin/Wound Care Bathing Instructions: Shower (or sitz baths x 2 weeks) ALYX REECE DO Oct 25, 2017 7:42 pm
[2017-10-25] MEDS ORDERED: IBUP-844 PO (19:44)
[2017-10-25] MEDS ORDERED: Benzocaine/Menthol TP (19:44)
[2017-10-25] MEDS ORDERED: ACHD5005 PO (19:44)
[2017-10-25] MEDS ORDERED: DIBU30OI TOP (19:44)
[2017-10-25] MEDS ORDERED: FERR325T18 PO (19:44)
[2017-10-25] MEDS ORDERED: DOCU100C37 PO (19:44)
[2017-10-25] MEDS ORDERED: HYDROcodone/APAP 5 MG/325 MG (LORTAB) TAB PO PRN (19:45)
[2017-10-25] MEDS ORDERED: WITCH HAZEL(TUCKS) 40 EA JAR TOP PRN (19:45)
[2017-10-25] MEDS ORDERED: BENZOCAINE/MENTHOL (DERMOPLAST) 56 ML CAN TP PRN (19:45)
[2017-10-25] MEDS ORDERED: MEASLES,MUMPS,RUBELLA 1 EA INJ SQ ONE (19:45)
[2017-10-25] MEDS ORDERED: TETANUS,DIPTH,PERTUSS P/F (BOOSTRIX) 0.5 ML VIAL IM ONE (19:45)
[2017-10-25] MEDS ORDERED: DIBUCAINE (NUPERCAINAL) 1% OINT 30 GM TOP PRN (19:45)
[2017-10-25] MEDS ORDERED: NALOXONE 0.4 MG/ML 1 ML (NARCAN) VIAL IV PRN (22:45)
[2017-10-25] MEDS ORDERED: EPIDURAL (SUFENTA 0.6MCG/ML BUPIVA 0.125%) 100 ML BAG EPI SCH (22:45)
[2017-10-25] MEDS ORDERED: CATHETER FLUSH 10 ML SYR IV PRN (22:45)
[2017-10-25] MEDS: IBUPROFEN 600 MG (MOTRIN) TAB PO SCH (22:52)
[2017-10-25] MEDS: DOCUSATE SODIUM 100 MG (COLACE) CAP PO SCH (22:53)
[2017-10-26 04:00] VITALS: BP 95/55
[2017-10-26] MEDS: IBUPROFEN 600 MG (MOTRIN) TAB PO SCH ×3 (05:08→17:56)
[2017-10-26 05:40] LABS: BASOPHILS % (AUTO) 0 % (0-10); EOSINOPHILS # (AUTO) 0.1 10^3/uL (0.0-0.3); EOSINOPHILS % (AUTO) 1 % (0-10); HEMATOCRIT 30 % (35-52); HEMOGLOBIN 10.2 G/DL (11.5-16.0); LYMPHOCYTES % (AUTO) 21 % (12-44); MEAN CORPUSCULAR HEMOGLOBIN 31 PG (25-34); MEAN CORPUSCULAR HGB CONC 35 G/DL (32-36); MEAN CORPUSCULAR VOLUME 89 FL (80-99); MEAN PLATELET VOLUME 10.6 FL (7.4-10.4); MONOCYTES # (AUTO) 0.8 X 10^3 (0.0-1.0); MONOCYTES % (AUTO) 9 % (0-12); NEUTROPHILS # (AUTO) 6.4 X 10^3 (1.8-7.8); NEUTROPHILS % (AUTO) 69 % (42-75); PLATELET COUNT 167 10^3/uL (130-400); RED BLOOD COUNT 3.33 10^6/uL (4.35-5.85); WHITE BLOOD COUNT 9.3 10^3/uL (4.3-11.0)
--- NOTE | 2017-10-26 07:22 | Anesthesia-Regional Post-Op ---
Regional Patient Condition Mental Status: Alert, Oriented x3 Circulation: Same as Pre-Op Headache: Absent Sensation: Full Recovery Motor Block: Absent Post Op Complications Complications None Follow Up Care/Instructions Patient Instructions None needed. Anesthesia/Patient Condition Patient is doing well, no complaints, stable vital signs, no apparent adverse anesthesia problems. No complications reported per nursing. D/[place] home [place] [facility] Criteria: No ROSARIO ENCISO CRNA Oct 26, 2017 07:22
--- NOTE | 2017-10-26 07:29 | Postpartum Progress Note ---
Note Note Day #1 Subjective: Patient is without complaints. Ambulating, voiding. Tolerating a regular diet without nausea or vomiting. Normal lochia. Pain is well controlled with oral pain medications. Objective: Vital Sign - Last 24 Hours 1818 7/18/18 7/18/18 7/18/18 07:30 07:45 08:00 08:15 Temp 97.5 Pulse 72 68 89 71 Resp 18 18 18 18 B/P (MAP) 112/68 (83) 109/65 (80) 107/70 (82) 108/63 (78) O2 Delivery Room Air Room Air Room Air Room Air 718/18 7/18/18 7/18/18 7/18/18 08:30 08:45 09:00 09:15 Pulse 71 76 72 66 Resp 18 18 18 18 B/P (MAP) 113/69 (84) 107/62 (77) 106/64 (78) 114/66 (82) O2 Delivery Room Air Room Air Room Air Room Air 10/25/18 7/18/18 7/18/18 718/18 09:30 09:45 10:00 10:15 Pulse 71 76 61 58 Resp 18 18 18 18 B/P (MAP) 110/67 (81) 114/62 (79) 108/60 (76) 100/59 (73) O2 Delivery Room Air Room Air Room Air Room Air 718 7/18/18 7/18/18 7/18/18 10:30 10:45 11:00 11:15 Pulse 81 88 80 65 Resp 18 18 18 18 B/P (MAP) 104/61 (75) 110/63 (79) 119/70 (86) 106/66 (79) O2 Delivery Room Air Room Air Room Air Room Air 718/18 7/18/18 7/18/18 7/18/18 11:30 11:45 12:00 12:15 Temp 97.0 Pulse 78 62 78 71 Resp 18 18 18 18 B/P (MAP) 121/70 (87) 113/69 (84) 113/59 (77) 116/64 (81) O2 Delivery Room Air Room Air Room Air Room Air 7/18 7/18/18 7/18/18 7/18/18 12:30 12:45 13:00 13:15 Pulse 75 81 77 61 Resp 18 18 18 18 B/P (MAP) 113/65 (81) 118/71 (87) 115/72 (86) 116/65 (82) O2 Delivery Room Air Room Air Room Air Room Air 718/18 7/18/18 7/18/18 7/18/18 13:30 13:45 14:00 14:15 Pulse 72 99 61 65 Resp 18 18 18 18 B/P (MAP) 115/67 (83) 105/85 (92) 105/85 (92) 111/62 (78) O2 Delivery Room Air Room Air Room Air Room Air 718/18 7/18/18 7/18/18 7/18/18 14:30 14:45 15:00 15:15 Temp 96.9 Pulse 64 75 89 76 Resp 18 18 20 18 B/P (MAP) 115/78 (90) 126/77 (93) 130/89 (103) 124/77 (93) O2 Delivery Room Air Room Air Room Air Room Air 18/18 7/18/18 7/18/18 71818 15:30 15:45 16:00 16:15 Pulse 87 76 84 Resp 18 18 18 18 B/P (MAP) 138/91 (107) 116/63 (80) 117/75 (89) O2 Delivery Room Air Room Air Room Air Room Air 18 7/18/18 7/18/18 718 16:30 16:32 16:35 16:40 Temp 97.0 Pulse 84 82 74 80 Resp 18 18 18 18 B/P (MAP) 117/75 (89) 125/66 (85) 120/58 (78) 113/69 (84) Pulse Ox 98 98 98 O2 Delivery Room Air Room Air Room Air Room Air 718/18 7/18/18 7/18/18 7/18/18 16:45 16:50 16:55 17:00 Pulse 80 75 77 77 Resp 18 18 18 18 B/P (MAP) 95/55 (68) 106/58 (74) 109/62 (78) Pulse Ox 99 99 97 O2 Delivery Room Air Room Air Room Air Room Air 10/25/18 7/18/18 7/18/18 7/18/18 17:05 17:10 17:20 17:35 Pulse 71 74 74 69 Resp 18 18 18 18 B/P (MAP) 97/54 (68) 103/59 (74) 121/75 (90) Pulse Ox 98 98 100 95 O2 Delivery Room Air Room Air Room Air Room Air 10/25/17 10/25/17 10/25/17 10/25/17 18:00 18:15 18:30 18:45 Pulse 74 88 79 64 Resp 18 18 18 18 B/P (MAP) 107/57 (74) 127/57 (80) Pulse Ox 99 97 96 97 O2 Delivery Room Air Room Air Room Air Room Air 10/25/17 10/25/17 10/25/17 10/25/17 19:00 19:15 19:30 20:00 Temp 98.2 Pulse 65 74 106 114 Resp 18 18 18 18 B/P (MAP) 110/67 (81) 114/61 (78) 111/66 (81) 125/81 (96) Pulse Ox 97 99 99 99 O2 Delivery Room Air Room Air Room Air Room Air 10/25/17 10/25/17 10/25/17 10/25/17 20:15 20:30 20:45 23:30 Temp 98.3 97.2 Pulse 83 71 96 68 Resp 18 18 18 18 B/P (MAP) 112/53 (72) 102/56 (71) 132/67 (88) 118/58 (78) Pulse Ox 99 99 99 99 O2 Delivery Room Air Room Air Room Air Room Air 10/26/17 04:00 Temp 97.2 Pulse 75 Resp 18 B/P (MAP) 95/55 (68) Pulse Ox 99 O2 Delivery Room Air Physical Exam: General - Alert and oriented, no apparent distress Abdomen - Soft, appropriately tender to palpation, non-distended, fundus firm at umbilicus Extremities - no edema, negative Faustino's bilaterally Assessment: PPD 1 NVD Plan: Routine care. Encourage breast feeding. Encourage ambulation. Ferrous sulfate supplementation. Plan for discharge tomorrow Vitals - Labs Vital Signs - I&O Vital Signs Date Time Temp Pulse Resp B/P (MAP) Pulse Ox O2 Delivery O2 Flow Rate FiO2 10/26/17 04:00 97.2 75 18 95/55 (68) 99 Room Air 10/25/17 23:30 97.2 68 18 118/58 (78) 99 Room Air 7/18/18 20:45 98.3 96 18 132/67 (88) 99 Room Air 1818 20:30 71 18 102/56 (71) 99 Room Air 1818 20:15 83 18 112/53 (72) 99 Room Air 1818 20:00 114 18 125/81 (96) 99 Room Air 1818 19:30 106 18 111/66 (81) 99 Room Air 1818 19:15 98.2 74 18 114/61 (78) 99 Room Air 1818 19:00 65 18 110/67 (81) 97 Room Air 18 18:45 64 18 127/57 (80) 97 Room Air 18 18:30 79 18 96 Room Air 18 18:15 88 18 97 Room Air 18 18:00 74 18 107/57 (74) 99 Room Air 18 17:35 69 18 95 Room Air 18 17:20 74 18 121/75 (90) 100 Room Air 18 17:10 74 18 103/59 (74) 98 Room Air 18 17:05 71 18 97/54 (68) 98 Room Air 18 17:00 77 18 109/62 (78) 97 Room Air 18 16:55 77 18 106/58 (74) 99 Room Air 18 16:50 75 18 95/55 (68) 99 Room Air 18 16:45 80 18 Room Air 18 16:40 80 18 113/69 (84) 98 Room Air 18 16:35 97.0 74 18 120/58 (78) 98 Room Air 18 16:32 82 18 125/66 (85) 98 Room Air 1818 16:30 84 18 117/75 (89) Room Air 1818 16:15 84 18 117/75 (89) Room Air 1818 16:00 76 18 116/63 (80) Room Air 1818 15:45 18 Room Air 1818 15:30 87 18 138/91 (107) Room Air 1818 15:15 76 18 124/77 (93) Room Air 10/25/17 15:00 96.9 89 20 130/89 (103) Room Air 10/25/17 14:45 75 18 126/77 (93) Room Air 10/25/17 14:30 64 18 115/78 (90) Room Air 10/25/17 14:15 65 18 111/62 (78) Room Air 10/25/17 14:00 61 18 105/85 (92) Room Air 10/25/17 13:45 99 18 105/85 (92) Room Air 10/25/17 13:30 72 18 115/67 (83) Room Air 10/25/17 13:15 61 18 116/65 (82) Room Air 10/25/17 13:00 77 18 115/72 (86) Room Air 10/25/17 12:45 81 18 118/71 (87) Room Air 10/25/17 12:30 75 18 113/65 (81) Room Air 10/25/17 12:15 71 18 116/64 (81) Room Air 10/25/17 12:00 78 18 113/59 (77) Room Air 10/25/17 11:45 62 18 113/69 (84) Room Air 10/25/17 11:30 97.0 78 18 121/70 (87) Room Air 10/25/17 11:15 65 18 106/66 (79) Room Air 10/25/17 11:00 80 18 119/70 (86) Room Air 10/25/17 10:45 88 18 110/63 (79) Room Air 10/25/17 10:30 81 18 104/61 (75) Room Air 10/25/17 10:15 58 18 100/59 (73) Room Air 10/25/17 10:00 61 18 108/60 (76) Room Air 10/25/17 09:45 76 18 114/62 (79) Room Air 10/25/17 09:30 71 18 110/67 (81) Room Air 10/25/17 09:15 66 18 114/66 (82) Room Air 10/25/17 09:00 72 18 106/64 (78) Room Air 10/25/17 08:45 76 18 107/62 (77) Room Air 10/25/17 08:30 71 18 113/69 (84) Room Air 10/25/17 08:15 71 18 108/63 (78) Room Air 10/25/17 08:00 97.5 89 18 107/70 (82) Room Air 10/25/17 07:45 68 18 109/65 (80) Room Air 10/25/17 07:30 72 18 112/68 (83) Room Air Labs Laboratory Tests 10/26/17 05:30: White Blood Count 9.3, Red Blood Count 3.33L, Hemoglobin 10.2L, Hematocrit 30L, Mean Corpuscular Volume 89, Mean Corpuscular Hemoglobin 31, Mean Corpuscular Hemoglobin Concent 35, Red Cell Distribution Width 13.0, Platelet Count 167, Mean Platelet Volume 10.6H, Neutrophils (%) (Auto) 69, Lymphocytes (%) (Auto) 21 , Monocytes (%) (Auto) 9, Eosinophils (%) (Auto) 1, Basophils (%) (Auto) 0, Neutrophils # (Auto) 6.4, Lymphocytes # (Auto) 2.0, Monocytes # (Auto) 0.8, Eosinophils # (Auto) 0.1, Basophils # (Auto) 0.0 ALYX REECE DO Oct 26, 2017 7:29 am
[2017-10-26 08:30] VITALS: BP 90/56
[2017-10-26] MEDS: PRENATAL VITAMIN 1 EA TAB PO SCH (08:37)
[2017-10-26] MEDS: FERROUS SULF 325 MG (IRON) TAB PO SCH (08:37)
[2017-10-26] MEDS: DOCUSATE SODIUM 100 MG (COLACE) CAP PO SCH (08:37)
[2017-10-26 12:20] VITALS: BP 106/76
[2017-10-26 17:30] VITALS: BP 101/65
[2017-10-27 00:18] VITALS: BP 99/60
[2017-10-27] MEDS: DOCUSATE SODIUM 100 MG (COLACE) CAP PO SCH ×2 (00:18→09:56)
[2017-10-27] MEDS: IBUPROFEN 600 MG (MOTRIN) TAB PO SCH ×3 (00:18→11:49)
[2017-10-27 06:09] VITALS: BP 104/67
--- NOTE | 2017-10-27 08:35 | Postpartum Progress Note ---
Note Note Day # 2 Subjective: Patient is without complaints. Ambulating, voiding. Tolerating a regular diet without nausea or vomiting. Normal lochia. Pain is well controlled with oral pain medications. Objective: Vital Sign - Last 24 Hours 10/26/17 10/26/17 10/27/17 10/27/17 12:20 17:30 00:18 06:09 Temp 97.5 97.6 97.9 98.7 Pulse 59 76 86 79 Resp 18 18 18 18 B/P (MAP) 106/76 (86) 101/65 (77) 99/60 (73) 104/67 (79) Pulse Ox 99 98 98 97 O2 Delivery Room Air Room Air Room Air Room Air Physical Exam: General - Alert and oriented, no apparent distress Abdomen - Soft, appropriately tender to palpation, non-distended, fundus firm at umbilicus Extremities - no edema, negative Faustino's bilaterally Assessment: PPD 2 NVD Plan: Routine care. Encourage breast feeding. Encourage ambulation. Ferrous sulfate supplementation. Plan for discharge today Vitals - Labs Vital Signs - I&O Vital Signs Date Time Temp Pulse Resp B/P (MAP) Pulse Ox O2 Delivery O2 Flow Rate FiO2 10/27/17 06:09 98.7 79 18 104/67 (79) 97 Room Air 10/27/17 00:18 97.9 86 18 99/60 (73) 98 Room Air 10/26/17 17:30 97.6 76 18 101/65 (77) 98 Room Air 10/26/17 12:20 97.5 59 18 106/76 (86) 99 Room Air ALYX REECE DO Oct 27, 2017 8:35 am
[2017-10-27 09:55] VITALS: BP 97/64
[2017-10-27] MEDS: FERROUS SULF 325 MG (IRON) TAB PO SCH (09:56)
[2017-10-27] MEDS: PRENATAL VITAMIN 1 EA TAB PO SCH (09:56)
[2017-10-27] MEDS ORDERED: MEASLES,MUMPS,RUBELLA 1 EA INJ ONE (13:42)
--- NOTE | 2017-11-07 08:02 | DISCHARGE SUMMARY ---
DATE OF SERVICE: ADMITTING DIAGNOSES: 1. A 21-year-old G1, P0 at 36 weeks and 6 days gestation. 2. labor. 3. Premature rupture of membranes. 4. GBS negative. DISCHARGE DIAGNOSES: 1. A 21-year-old G1, P0 at 36 weeks and 6 days gestation. 2. labor. 3. Premature rupture of membranes. 4. GBS negative. 5. day 2 normal vaginal delivery. ATTENDING PHYSICIAN: Alyx Reece DO. [facility] HOSPITAL COURSE: Please see admission H and P from 10/25/2017 for complete details pertaining to the patient's admission presentation and plan of care. Please see delivery summary from 10/25/2017 for complete details pertaining to the patient's labor course and delivery. course of this patient was fairly routine. On day #1, she was ambulating and voiding freely. Her vital signs remained stable. There was a hemoglobin drop to 10.2 and ferrous sulfate supplementation was implemented. On day #2, the patient continued to do well. She was . Her pain was controlled. She was ambulating and voiding freely. Her lochia was normal. Due to the patient's clinical stability, the decision was made to discharge the patient home on day #2. She was given routine and precautions and told to return to my office in six weeks. DISCHARGE MEDICATIONS: She was discharged on the following medications including; Colace 100 mg 1 p.o. b.i.d. p.r.n. as needed for constipation, #40. Ferrous sulfate 325 mg p.o. daily, #60. Hydrocodone 5/325 1 to 2 p.o. q.4-6 hours p.r.n. as needed for pain, #30. Motrin 600 mg 1 p.o. q.6 hours p.r.n. as needed for pain, #80. The patient's discharge was facilitated at that point. All questions were answered pertaining to precautions and administration of medications. Job ID: [id number] DocumentID: [id number] Dictated Date: 11/07/2017 07:18:57 Icu Manager Date: 11/07/2017 08:02:08 Dictated By: ALYX REECE DO
== END 2017-10-27 15:00 | disposition home or self-care (01) | DRG 775 ==
LOC: WSo 22:12 → LDRP 22:13 → WSo 22:43 → LDRP 22:43
PROVIDERS: ADMIT Obstetrics & Gynecology; ATTEND Obstetrics & Gynecology
PROC: 10E0XZZ Delivery of Products of Conception, External Approach (ICD-10-PCS; principal; 2017-10-25)
PROC: 0HQ9XZZ Repair Perineum Skin, External Approach (ICD-10-PCS; 2017-10-25)
DX: O42.013 Preterm premature rupture of membranes, onset of labor within 24 hours of rupture, third trimester (principal); O70.0 First degree perineal laceration during delivery; Z3A.36 36 weeks gestation of pregnancy; Z37.0 Single live birth; Z23 Encounter for immunization
CPT/HCPCS: 36415; 81000; 83033; 85025; 86850; 86900; 86901; 90707; 99212

== ENCOUNTER 2017-11-06 21:24 | Emergency (ER) | payer MEDICAID ==
[~2017-11-06] VITALS: Ht 170.2 cm; Wt 81.4 kg
[~2017-11-06 21:24] MED LIST changes: +Benzocaine/Menthol TP; +DIBU30OI TOP; +DOCU100C37 PO; +FERR325T18 PO; +IBUP-844 PO
[2017-11-06] MEDS ORDERED: LACTATED RINGERS 1,000 ML IV ONE ×2 (21:36→22:54)
--- NOTE | 2017-11-06 21:42 | ED General ---
General Stated Complaint: FEVER;NAUSEA Source of Information: Patient History of Present Illness Date Seen by Provider: Nov 06, 2017 Time Seen by Provider: 21:31 Initial Comments PT ARRIVES VIA POV FROM HOME PT STATES "I'M HOT AND MY CHEST HURTS" SYMPTOMS BEGAN AT 1330 TODAY--FELT FINE THIS AM PT STATES TEMP WAS 101.9 THIS AFTERNOON--HAS NOT TAKEN ANYTHING FOR FEVER OR PAIN HAS HAD SLIGHT COUGH AND SLIGHT SHORTNESS OF BREATH C/O LOWER BACK PAIN + NAUSEA, NO VOMITING. HAS HAD "A LITTLE BIT" OF DIARRHEA TODAY NO ABDOMINAL PAIN NO SORE THROAT NO URINARY SYMPTOMS PT DELIVERED 10 DAYS AGO-- PT STATES SHE HAS NOT HAD MUCH POST BLEEDING AT ALL. PT IS . STATES THEY THOUGHT SHE WAS AROUND 36-37 WEEKS, BUT STATES THAT CHILD HAS BEEN IN [facility] FOR A WEEK AND WAS TOLD THAT CHILD WAS PROBABLY AROUND 34 WEEKS. CHILD HAD SOME BREATHING PROBLEMS--"COULDN'T EAT AND BREATHE AT THE SAME TIME" PER MOM. CHILD WAS DISMISSED ON Monday11/03/17 AND IS DOING WELL, GAINING WEIGHT. CHILD HAS NOT HAD FEVER OR DIFFICULTY BREATHING SINCE BEING HOME NO KNOWN SICK CONTACTS. PCP: FT. LAZARUS BENAVIDEZ SKIING INSTRUCTOR: DR. REECE Allergies and Home Medications Allergies Coded Allergies: No Known Drug Allergies (Unverified , 10/04/08) Home Medications Azithromycin 500 Mg Tablet, 500 MG PO DAILY FOR INFECTION Prescribed by: DEENA LANCE on 11/06/172336 Cefdinir 300 Mg Capsule, 300 MG PO BID Prescribed by: DEENA LANCE on 11/06/172336 Dibucaine 30 Gm Oint, 0 GM TOP UD PRN for PAIN- SEE INSTRUCTIONS Prescribed by: ALYX REECE on 10/25/171943 Docusate Sodium 100 Mg Capsule, 100 MG PO BID PRN for CONSTIPATION-1ST LINE Prescribed by: ALYX REECE on 10/25/171943 Ferrous Sulfate 325 Mg Tablet, 325 MG PO DAILY Prescribed by: ALYX REECE on 10/25/171943 Hydrocodone Bit/Acetaminophen 1 Tab Tab, 1-2 TAB PO Q4H PRN for PAIN-MODERATE Prescribed by: ALYX REECE on 10/25/171943 Ibuprofen 600 Mg Tablet, 600 MG PO Q6H Prescribed by: ALYX REECE on 10/25/171943 [Benzocaine/Menthol] 56 ML AEROSOL, 56 ML TP UD PRN for PAIN- SEE INSTRUCTIONS EXTERNAL USE ONLY Prescribed by: ALYX REECE on 10/25/171943 Patient Home Medication List Home Medication List Reviewed: Yes Review of Systems Constitutional: see HPI, fever, malaise, weakness EENTM: nose congestion Respiratory: see HPI, cough; No phlegm; short of breath; No wheezing Cardiovascular: see HPI, chest pain; No edema, No palpitations, No syncope, No vascular heart diseas Gastrointestinal: No abdominal pain, No constipation, No diarrhea; loss of appetite, nausea; No vomiting Genitourinary: see HPI; No dysuria, No frequency, No pain Musculoskeletal: see HPI, back pain Skin: no symptoms reported Psychiatric/Neurological: No Symptoms Reported; Denies Headache Hematologic/Lymphatic: No Symptoms Reported Immunological/Allergic: no symptoms reported Past Reyzekg-Dlbbrk-Dpcmbx Hx Patient Social History Alcohol Use: Denies Use Recreational Drug Use: No Smoking Status: Former Smoker Type Used: Cigarettes Former Smoker, Quit: Apr 26, 2017 Recent Foreign Travel: No Contact w/Someone Who Travel: No Recent Hopitalizations: No Immunizations Up To Date Tetanus Booster (TDap): Less than 5yrs PED Vaccines UTD: Yes Seasonal Allergies Seasonal Allergies: Yes Past Medical History Surgeries: Yes Respiratory: No Cardiac: No Neurological: Yes Headaches /Migraines Reproductive Disorders: No Female Reproductive Disorders: Denies Sexually Transmitted Disease: No HIV/AIDS: No Genitourinary: Yes UTI-Chronic Gastrointestinal: No Musculoskeletal: Yes (NEUROFIBROMATOSIS) Endocrine: No HEENT: No Cancer: No Psychosocial: No Integumentary: No Blood Disorders: No Adverse Reaction/Blood Tranf: No Family Medical History Patient reports no known family medical history. No Pertinent Family Hx Physical Exam Vital Signs Vital Signs - First Documented 11/06/17 11/06/17 21:40 23:49 Temp 101.5 Pulse 118 Resp 16 B/P (MAP) 106/68 Pulse Ox 99 O2 Delivery Room Air Capillary Refill : Height, Weight, BMI Height: 5'7.00" Weight: 179lbs. 8.0oz. 81.769139bp; 28.1 BMI Method:Stated General Appearance: No Apparent Distress, WD/WN HEENT: PERRL/EOMI, TMs Normal, Normal ENT Inspection, Pharynx Normal Neck: Full Range of Motion, Normal Inspection, Non Tender, Supple Respiratory: Normal Breath Sounds, No Accessory Muscle Use, No Respiratory Distress Cardiovascular: Regular Rate, Rhythm, No Edema, No JVD, No Murmur, Normal Peripheral Pulses Gastrointestinal: Normal Bowel Sounds, No Organomegaly, No Pulsatile Mass, Non Tender, Soft Back: No Vertebral Tenderness, CVA Tenderness (L) (MILD ), CVA Tenderness (R) ( MILD) Extremity: Normal Capillary Refill, Normal Inspection, Normal Range of Motion, Non Tender, No Calf Tenderness, No Pedal Edema Neurologic/Psychiatric: Alert, Oriented x3, No Motor/Sensory Deficits, Normal Mood/Affect, sql database developer II-XII Norm as Tested Skin: Normal Color, Warm/Dry; No Rash Focused Exam Lactate Level 11/06/17 21:47: Lactic Acid Level 0.78 Lactic Acid Level Progress/Results/Core Measures Suspected Sepsis SIRS Temperature: Pulse: Respiratory Rate: Laboratory Tests 11/06/17 21:47: White Blood Count 15.2H Blood Pressure / Mean: 11/06/17 21:47: Lactic Acid Level 0.78 Laboratory Tests 11/06/17 21:47: Creatinine 0.76, Platelet Count 233, Total Bilirubin 0.5 Results/Orders Lab Results Laboratory Tests Test 11/06/17 21:38 11/06/17 21:47 11/06/17 22:44 Range/Units Group A Streptococcus Screen NEGATIVE NEGATIVE White Blood Count 15.2 H 4.3-11.0 10^3/uL Red Blood Count 4.39 4.35-5.85 10^6/uL Hemoglobin 13.6 11.5-16.0 G/DL Hematocrit 39 35-52 % Mean Corpuscular Volume 88 80-99 FL Mean Corpuscular Hemoglobin 31 25-34 PG Mean Corpuscular Hemoglobin Concent 35 32-36 G/DL Red Cell Distribution Width 12.5 10.0-14.5 % Platelet Count 233 130-400 10^3/uL Mean Platelet Volume 9.9 7.4-10.4 FL Neutrophils (%) (Auto) 93 H 42-75 % Lymphocytes (%) (Auto) 5 L 12-44 % Monocytes (%) (Auto) 2 0-12 % Eosinophils (%) (Auto) 0 0-10 % Basophils (%) (Auto) 0 0-10 % Neutrophils # (Auto) 14.1 H 1.8-7.8 X 10^3 Lymphocytes # (Auto) 0.7 L 1.0-4.0 X 10^3 Monocytes # (Auto) 0.4 0.0-1.0 X 10^3 Eosinophils # (Auto) 0.0 0.0-0.3 10^3/uL Basophils # (Auto) 0.0 0.0-0.1 10^3/uL Neutrophils % (Manual) 74 % Lymphocytes % (Manual) 3 % Monocytes % (Manual) 3 % Eosinophils % (Manual) 0 % Basophils % (Manual) 0 % Band Neutrophils 20 % Blood Morphology Comment NORMAL Sodium Level 139 135-145 MMOL/L Potassium Level 3.3 L 3.6-5.0 MMOL/L Chloride Level 106 98-107 MMOL/L Carbon Dioxide Level 22 21-32 MMOL/L Anion Gap 11 5-14 MMOL/L Blood Urea Nitrogen 8 7-18 MG/DL Creatinine 0.76 0.60-1.30 MG/DL Estimat Glomerular Filtration Rate > 60 BUN/Creatinine Ratio 11 Glucose Level 112 H 70-105 MG/DL Lactic Acid Level 0.78 0.50-2.00 MMOL/L Calcium Level 8.9 8.5-10.1 MG/DL Total Bilirubin 0.5 0.1-1.0 MG/DL Aspartate Amino Transf (AST/SGOT) 15 5-34 U/L Alanine Aminotransferase (ALT/SGPT) 12 0-55 U/L Alkaline Phosphatase 103 40-136 U/L Total Protein 6.6 6.4-8.2 GM/DL Albumin 3.6 3.2-4.5 GM/DL Monoscreen NEGATIVE NEGATIVE Urine Color YELLOW Urine Clarity CLEAR Urine pH 6 5-9 Urine Specific [place] 1.005 L 1.016-1.022 Urine Protein NEGATIVE NEGATIVE Urine Glucose (UA) NEGATIVE NEGATIVE Urine Ketones NEGATIVE NEGATIVE Urine Nitrite NEGATIVE NEGATIVE Urine Bilirubin NEGATIVE NEGATIVE Urine Urobilinogen NORMAL NORMAL MG/DL Urine Leukocyte Esterase 3+ H NEGATIVE Urine RBC (Auto) 5+ H NEGATIVE Urine RBC 5-10 H /HPF Urine WBC 50-100 H /HPF Urine Squamous Epithelial Cells 2-5 /HPF Urine Crystals NONE /LPF Urine Bacteria TRACE /HPF Urine Casts NONE /LPF Urine Mucus NEGATIVE /LPF Urine Culture Indicated YES My Orders Orders - CASI,DEENA K DO Saline Lock/Iv-Start (11/06/17 21:36) Cbc With Automated Diff (11/06/17 21:36) Comprehensive Metabolic Panel (11/06/17 21:36) Lactic Acid Analyzer (11/06/17 21:36) Monotest (11/06/17 21:36) Rapid Strep A Screen (11/06/17 21:36) Ua Culture If Indicated (11/06/17 21:36) Blood Culture (11/06/17 21:36) Chest Pa/Lat (2 View) (11/06/17 21:36) Saline Lock/Iv-Start (11/06/17 21:36) Lactated Ringers (Lr 1000 Ml Iv Solution (11/06/17 21:36) Acetaminophen Tablet (Tylenol Tablet) (11/06/17 21:45) Manual Differential (11/06/17 21:47) Ceftriaxone Injection (Rocephin Injectio (11/06/17 23:00) Saline Lock/Iv-Start (11/06/17 22:54) Lactated Ringers (Lr 1000 Ml Iv Solution (11/06/17 22:54) Urine Culture (11/06/17 22:44) Ibuprofen Tablet (Motrin Tablet) (11/06/17 23:15) Incentive Spirometry Initial (11/06/17 23:29) Incentive Spirometry (Nursing) Q2H (11/06/17 23:29) Azithromycin Tablet (Zithromax Tablet) (11/06/17 23:45) Medications Given in ED Current Medications Medications Dose Ordered Sig/Suzette Route Start Time Stop Time Status Last Admin Dose Admin Acetaminophen 1,000 mg ONCE ONCE PO 11/06/17 21:45 11/06/17 21:46 DC 11/06/17 21:51 1,000 MG Ceftriaxone Sodium 1000 mg/ Sodium Chloride 50 ml @ 100 mls/hr ONCE ONCE IV 11/06/17 23:00 11/06/17 23:29 DC 11/06/17 23:08 100 MLS/HR Ibuprofen 800 mg ONCE ONCE PO 11/06/17 23:15 11/06/17 23:16 DC 11/06/17 23:44 800 MG Lactated Ringer's 1,000 ml @ 0 mls/hr Q0M ONCE IV 11/06/17 21:36 7/30/18 21:39 DC 11/06/17 21:48 0 MLS/HR Lactated Ringer's 1,000 ml @ 0 mls/hr Q0M ONCE IV 11/06/17 22:54 11/06/17 22:56 DC 11/06/17 23:08 0 MLS/HR Vital Signs/I&O 11/06/17 11/06/17 11/06/17 11/06/17 21:40 21:51 23:44 23:49 Temp 101.5 101.5 99.1 99.1 Pulse 118 89 Resp 16 16 B/P (MAP) 106/68 106/70 Pulse Ox 99 O2 Delivery Room Air Room Air 11/07/17 00:00 Intake Total 2050 ml Balance 2050 ml Capillary Refill : Progress Note : Progress Note UNEVENTFUL ER STAY TEMP DOWN AT DISMISSAL HEART RATE DOWN AND BP > 100 SYSTOLIC AT DISMISSAL Diagnostic Imaging Comments CXR--RML INFILTRATE, PENDING RADIOLOGIST REVIEW Departure Impression Primary Impression: RML pneumonia Additional Impressions: UTI (urinary tract infection) 10 DAYS POST Disposition: 01 HOME, SELF-CARE Condition: Stable Departure-Patient Inst. Referrals: ALYX REECE DO (PCP) Primary Care Physician Patient Instructions: Community-Acquired Pneumonia, Adult (DC), Urinary Tract Infection, Adult (DC) Add. Discharge Instructions: TYLENOL AND MOTRIN NEEDED FOR PAIN OR FEVER LOTS OF CLEAR LIQUIDS USE INCENTIVE SPIROMETRY EVERY HOUR WHILE AWAKE FOLLOW UP WITH DR. REECE IN 2-3 DAYS FOR FURTHER CARE Scripts Azithromycin (Zithromax) 500 Mg Tablet 500 MG PO DAILY, #5 TAB FOR INFECTION Prov: DEENA LANCE DO 11/06/17 Cefdinir (Cefdinir) 300 Mg Capsule 300 MG PO BID for FOR INFECTION, #20 CAP Prov: DEENA LANCE DO 11/06/17 DEENA LANCE DO Nov 06, 2017 21:42
[2017-11-06] MEDS ORDERED: ACETAMINOPHEN 500 MG TAB (TYLENOL) PO ONE (21:45)
[2017-11-06 22:02] LABS: BASOPHILS % (AUTO) 0 % (0-10); EOSINOPHILS % (AUTO) 0 % (0-10); HEMATOCRIT 39 % (35-52); HEMOGLOBIN 13.6 G/DL (11.5-16.0); LYMPHOCYTES # (AUTO) 0.7 X 10^3 (1.0-4.0); LYMPHOCYTES % (AUTO) 5 % (12-44); MEAN CORPUSCULAR HEMOGLOBIN 31 PG (25-34); MEAN CORPUSCULAR HGB CONC 35 G/DL (32-36); MEAN CORPUSCULAR VOLUME 88 FL (80-99); MEAN PLATELET VOLUME 9.9 FL (7.4-10.4); MONOCYTES # (AUTO) 0.4 X 10^3 (0.0-1.0); MONOCYTES % (AUTO) 2 % (0-12); NEUTROPHILS # (AUTO) 14.1 X 10^3 (1.8-7.8); NEUTROPHILS % (AUTO) 93 % (42-75); PLATELET COUNT 233 10^3/uL (130-400); RED BLOOD COUNT 4.39 10^6/uL (4.35-5.85); RED CELL DISTRIBUTION WIDTH 12.5 % (10.0-14.5); WHITE BLOOD COUNT 15.2 10^3/uL (4.3-11.0)
[2017-11-06 22:19] LABS: BAND NEUTROPHILS 20 %; BASOPHILS % (MANUAL) 0 %; EOSINOPHILS % (MANUAL) 0 %; LYMPHOCYTES % (MANUAL) 3 %; MONOCYTES % (MANUAL) 3 %; NEUTROPHILS % (MANUAL) 74 %; RBC MORPH NORMAL
[2017-11-06 22:20] LABS: ALANINE AMINOTRANSFERASE 12 U/L (0-55); ALBUMIN 3.6 GM/DL (3.2-4.5); ALKALINE PHOSPHATASE 103 U/L (40-136); BILIRUBIN,TOTAL 0.5 MG/DL (0.1-1.0); BUN/CREATININE RATIO 11; CALCIUM 8.9 MG/DL (8.5-10.1); CARBON DIOXIDE 22 MMOL/L (21-32); CHLORIDE 106 MMOL/L (98-107); CREATININE SERUM 0.76 MG/DL (0.60-1.30); GFR ESTIMATED > 60; GLUCOSE 112 MG/DL (70-105); POTASSIUM 3.3 MMOL/L (3.6-5.0); SODIUM 139 MMOL/L (135-145); TOTAL PROTEIN 6.6 GM/DL (6.4-8.2)
--- OUTSIDE RECORDS SUMMARY | 2017-11-06 22:39 | XMS REPORT | Clinical Summary ---
Author Author [facility] Organization [facility] Address Unknown Phone Unavailable Care Team Providers Care Agricultural Specialist Name Role Phone Joaquin Emery MD Unavailable Humberto Merino MD Unavailable Manny De Luna MD PCP Brayden Garrison DO Unavailable Source Comments Some departments are not documenting in the electronic medical record. If you do not see the information that you expected, contact Release of Information in the Health Information Management department at [phone] for further assistance in locating additional records.[facility] Allergies No Known Allergies Current Medications Prescription [...] VACCINES (1 of 3 - 2008 Female 3-dose series) PERTUSSIS VACCINE 2008 HIV SCREENING 2012 TETANUS VACCINE 2014 INFLUENZA VACCINE 01/08/2018 Results Not on filefrom Last 3 Months
[2017-11-06 22:54] LABS: BILIRUBIN,URINE NEGATIVE (NEGATIVE); CLARITY,URINE CLEAR; COLOR,URINE YELLOW; GLUCOSE, URINE (UA) NEGATIVE (NEGATIVE); KETONES,URINE NEGATIVE (NEGATIVE); LEUKOCYTE ESTERASE ,URINE 3+ (NEGATIVE); NITRITE,URINE NEGATIVE (NEGATIVE); PH,URINE 6 (5-9); PROTEIN,URINE NEGATIVE (NEGATIVE); UROBILINOGEN,URINE NORMAL (NORMAL)
[2017-11-06] MEDS ORDERED: cefTRIAXone INJECTION 1,000 MG in NS (IVPB) 50 ML IV ONE (23:00)
[2017-11-06 23:01] LABS: BACTERIA,URINE TRACE /HPF; WBC,URINE 50-100 /HPF
[2017-11-06] MEDS ORDERED: IBUPROFEN 800 MG (MOTRIN) TAB PO ONE (23:15)
[2017-11-06] MEDS ORDERED: AZIT500T PO (23:37)
[2017-11-06] MEDS ORDERED: CEFD300C3 PO (23:37)
[2017-11-06] MEDS ORDERED: AZITHROMYCIN 250 MG TAB (ZITHROMAX) PO SCH (23:45)
[2017-11-06 23:49] VITALS: BP 106/70
--- NOTE | 2017-11-07 07:41 | Diagnostic Imaging Report ---
Indication: Fever, nausea and vomiting. PA and lateral views of the chest were obtained. Findings: The heart size normal. The mediastinum is unremarkable. There is a questionable patchy infiltrate in the right middle lobe. No pleural effusion or pneumothorax. Mediastinum is unremarkable. Impression: Questionable minimal infiltrate in the right middle lobe. Early pneumonia cannot be excluded. Recommend clinical correlation. Dictated by: Dictated on workstation # [id number]
== END 2017-11-06 23:48 | disposition home or self-care (01) ==
LOC: EDUNIT# 21:24 → ER 21:25
DX: O99.53 Diseases of the respiratory system complicating the puerperium (principal); J18.1 Lobar pneumonia, unspecified organism; O86.20 Urinary tract infection following delivery, unspecified; G43.909 Migraine, unspecified, not intractable, without status migrainosus; Z87.891 Personal history of nicotine dependence; Z87.440 Personal history of urinary (tract) infections
CPT/HCPCS: 36415; 71046; 80053; 81000; 83605; 85007; 85027; 86308; 87040; 87088; 87430; 96361; 96365

== ENCOUNTER → 2018-07-09 | Outpatient (CLI) | payer MEDICAID ==
[~2018-07-09] MED LIST changes: +AZIT500T PO; +CEFD300C3 PO
--- NOTE | 2018-07-09 11:11 | Diagnostic Imaging Report ---
PROCEDURE: US abdomen complete. TECHNIQUE: Multiple real-time grayscale images were obtained over the abdomen in various projections. INDICATION: Right upper quadrant abdominal pain. FINDINGS: The liver is enlarged approximately 20 cm. No discrete liver mass is identified. The portal vein is patent and shows normal direction of flow. Gallbladder is without stones or sludge. No wall thickening or biliary ductal dilatation is identified. Visualized pancreas is unremarkable. The spleen is normal in size 11.2 cm. Proximal aorta is non-aneurysmal. Mid and distal aorta are obscured by bowel gas. IVC is unremarkable. Both kidneys demonstrate cortical thickness and echogenicity to be normal. No calculi are seen. There is no hydronephrosis. There is no ascites. IMPRESSION: 1. Hepatomegaly. 2. No other significant abnormality in the abdomen is identified. Dictated by: Dictated on workstation # [id number]
== END ==
LOC: RAD 09:02
PROVIDERS: ATTEND Pediatrics
DX: R16.0 Hepatomegaly, not elsewhere classified (principal); R10.11 Right upper quadrant pain
CPT/HCPCS: 76700

== ENCOUNTER → 2018-07-18 | Outpatient (CLI) | payer MEDICAID ==
[~2018-07-18] MED LIST changes: +GADOBUTROL 10 MMOL/10 ML (GADAVIST) VIAL IV ONE
--- NOTE | 2018-07-18 15:47 | Diagnostic Imaging Report ---
PROCEDURE: MR imaging of the brain with and without contrast. TECHNIQUE: Multiplanar, multisequence MR imaging of the brain was performed with and without contrast. INDICATION: Neurofibromatosis with worsening headache. COMPARISON: Comparison is made to the examination of 03/30/2015. FINDINGS: Ventricles and sulci are within normal limits for size. Pace and white matter signal intensities are unremarkable. There is no abnormal mass effect or shift of midline structures. There is no restricted diffusion to indicate infarction. Probable developmental venous anomaly is again demonstrated in the right frontal lobe. There is no paranasal sinus air-fluid level. No other abnormal contrast enhancement is identified. IMPRESSION: Unremarkable MRI of the brain without new abnormality detected. Dictated by: Dictated on workstation # [id number]
== END ==
LOC: RAD 14:19
PROVIDERS: ATTEND Pediatrics
DX: Q85.00 Neurofibromatosis, unspecified (principal); R51 Headache
CPT/HCPCS: 70553

== ENCOUNTER → 2018-12-03 | Outpatient (CLI) | payer MEDICAID ==
[~2018-12-03] MED LIST changes: +CATHETER FLUSH 10 ML SYR IV PRN; +DULO60CA59 PO; -GADOBUTROL 10 MMOL/10 ML (GADAVIST) VIAL IV ONE; +TOPI100T11 PO
--- NOTE | 2018-12-03 19:42 | Diagnostic Imaging Report ---
INDICATION: Right upper quadrant pain. TECHNIQUE: Acquisitions were acquired over the abdomen after the administration of 4.78 mCi of technetium 99m Choletec. The ejection fraction was evaluated 45 minutes after the patient ingested a can of Ensure. FINDINGS: There is homogeneous uptake of isotope throughout the liver. There is significant accumulation within the gallbladder by 45 minutes. There is free flow of activity in the small bowel. Ejection fraction is 2.7%. IMPRESSION: No evidence of cystic duct obstruction; however, there is an abnormal ejection fraction of 2.7%. Dictated by: Dictated on workstation # [id number]
== END ==
LOC: CARD 13:01
PROVIDERS: ATTEND Pediatrics
DX: R10.11 Right upper quadrant pain (principal)
CPT/HCPCS: 78227

== ENCOUNTER 2018-12-06 05:31 | Outpatient (CLI) | payer MEDICAID ==
[~2018-12-06] VITALS: Ht 170.2 cm; Wt 81.2 kg
[~2018-12-06 05:31] MED LIST changes: -CATHETER FLUSH 10 ML SYR IV PRN; -DULO60CA59 PO; -TOPI100T11 PO
[2018-12-06] MEDS ORDERED: TOPI100T11 PO (13:53)
[2018-12-06] MEDS ORDERED: DULO60CA59 PO (13:53)
== END 2018-12-06 13:57 | disposition home or self-care (01) ==
LOC: PREOP 05:31
PROVIDERS: ATTEND Surgery
DX: Z01.818 Encounter for other preprocedural examination (principal)

== ENCOUNTER 2018-12-12 07:14 | Day surgery (SDC) | payer MEDICAID ==
[2018-12-12] VITALS (12 sets, daily range): BP systolic 103–129; BP diastolic 66–93
[~2018-12-12] VITALS: Ht 170.2 cm; Wt 103.5 kg
[~2018-12-12 07:14] MED LIST changes: +DULO60CA59 PO; +TOPI100T11 PO
[2018-12-12] MEDS ORDERED: BUP/EPI 0.25% 1:200,000 (MARCAINE) 10 ML VIAL IJ ONE (07:16)
[2018-12-12] MEDS ORDERED: LACTATED RINGERS 1,000 ML IV PRN (07:20)
[2018-12-12] MEDS ORDERED: ceFAZolin 2 GM/50 ML NS 50 ML IV ONE (07:30)
[2018-12-12] MEDS: CATHETER FLUSH 10 ML SYR IV PRN ×2 (07:39→07:41)
[2018-12-12 07:53] LABS: BASOPHILS # (AUTO) 0.1 10^3/uL (0.0-0.1); BASOPHILS % (AUTO) 1 % (0-10); EOSINOPHILS # (AUTO) 0.5 10^3/uL (0.0-0.3); EOSINOPHILS % (AUTO) 9 % (0-10); HEMATOCRIT 44 % (35-52); HEMOGLOBIN 14.9 G/DL (11.5-16.0); LYMPHOCYTES # (AUTO) 2.1 X 10^3 (1.0-4.0); LYMPHOCYTES % (AUTO) 34 % (12-44); MEAN CORPUSCULAR HEMOGLOBIN 29 PG (25-34); MEAN CORPUSCULAR HGB CONC 34 G/DL (32-36); MEAN CORPUSCULAR VOLUME 84 FL (80-99); MEAN PLATELET VOLUME 10.2 FL (7.4-10.4); MONOCYTES # (AUTO) 0.5 X 10^3 (0.0-1.0); MONOCYTES % (AUTO) 9 % (0-12); NEUTROPHILS % (AUTO) 48 % (42-75); PLATELET COUNT 274 10^3/uL (130-400); RED CELL DISTRIBUTION WIDTH 13.1 % (10.0-14.5); WHITE BLOOD COUNT 6.3 10^3/uL (4.3-11.0)
[2018-12-12] MEDS ORDERED: DEXAMETHASONE 10 MG/ML (DECADRON) 1 ML VIAL ONE (07:53)
[2018-12-12] MEDS ORDERED: fentaNYL INJECTION 100 MCG/2 ML AMP ONE ×3 (07:53→10:15)
[2018-12-12] MEDS ORDERED: ROCURONIUM 10 MG/ML 5 ML SYRINGE IV ONE (07:53)
[2018-12-12] MEDS ORDERED: LIDOCAINE PF 2% 5 ML (XYLOCAINE) VIAL ONE (07:53)
[2018-12-12] MEDS ORDERED: proPOfol 200 MG/20 ML (DIPRIVAN) VIAL IV ONE (07:53)
[2018-12-12] MEDS ORDERED: ONDANSETRON 4 MG/2 ML (SDV) Z0FRAN ONE ×2 (07:53→09:55)
[2018-12-12] MEDS ORDERED: MIDAZOLAM 2 MG/2 ML (VERSED) VIAL ONE (07:54)
--- NOTE | 2018-12-12 08:06 | Progress Note-Pre Operative ---
Pre-Operative Progress Note H&P Reviewed The H&P was reviewed, patient examined and no changes noted. Time Seen by Provider: 07:57 Date H&P Reviewed: Dec 12, 2018 Time H&P Reviewed: 07:58 Pre-Operative Diagnosis: Biliary Dyskinesia JERMAIN CEDEÑO DO Dec 12, 2018 08:06
[2018-12-12] MEDS ORDERED: NEOSTIGMINE 3 MG/3 ML VIAL ONE (09:36)
[2018-12-12] MEDS ORDERED: GLYCOPYRROLATE 0.2 MG/ML (ROBINUL) 2 ML VIAL ONE (09:36)
--- NOTE | 2018-12-12 09:49 | Progress Note-Post Operative ---
Post-Operative Progess Note Surgeon (s)/Gas Mask Assembler (s) Surgeon JERMAIN CEDEÑO DO Gas Mask Assembler: Juan Pre-Operative Diagnosis Biliary Dyskinesia Post-Operative Diagnosis Same plus adhesions Procedure & Operative Findings Date of Procedure 12/12/18 Procedure Performed/Findings Laparoscopic Cholecystectomy with cholangiogram, Using the Robot and Firefly Anesthesia Type GET Estimated Blood Loss Estimated blood loss (mL): scant Specimens/Packing Specimens Removed JERMAIN SHER DO Dec 12, 2018 09:49
[2018-12-12] MEDS ORDERED: ACHD5005 PO (09:50)
--- NOTE | 2018-12-12 09:51 | Discharge Inst-Surgical ---
Discharge Inst-Surgical Reconcile Patient Problems Problems Reviewed?: Yes Depart Medication/Instructions New, Converted or Re-Newed RX: RX Given to Pt/Family Patient Instructions Follow up Appt: Make appointment for 1 week. [phone] Instructions: No lifting greater than 20 pounds. No strenuous activity. May shower in 24 hours, no tub bath or soaking. Use incentive spirometer at home as directed. No Smoking Skin/Wound Care: May remove bandages in am. You need to leave the Dermabond on incision it will fall off on it's own. Symptoms to Report: Appetite Changes, Extremity Discoloration, Numbness/Tingling, Swelling Increased, Bleeding Excessive, Eyesight Changes, Pain Increased, Urine Color Change, Constipation(Persistent), Fever over 101 degree F, Pain/Pressure in chest, Urinating Difficulty, Cough Up/Vomit Blood, Heart Beat Irreg/Pounding, Pain/Pressure in jaw, Cramps in feet or legs, Lightheadedness, Pain/Pressure in shoulder, Diarrhea(Persistent), Memory Changes Suddenly, Questions/Concerns, Weight gain consecutive days, Dizziness/Fainting, Nausea/Vomiting, Shortness of Breath, Weight gain over 2 pounds If questions or concerns contact your physician Or seek help at emergency department. Activity Activity as Tolerated: Yes Activity Instructions: Avoid Stress to Incision Driving Instructions: No Driving/Refer to Diet Discharge Diet: Avoid Fatty Foods, Low Fat/Low Cholesterol Diet After 24 Hours: Clear Liquid if Nauseous If Any Problems/Questions/Issu: Contact Your Physician, Go to Emergency Room Skin/Wound Care Infection Signs and Symptoms: Increased Redness, Foul Odor of Wound, Increased Drainage, Skin Itchy or Has a Rash, Increased Swelling, Temperature Above 101 F Wound Care Comment: Heating pad to shoulder or neck tonight for pain Bathing Instructions: Shower Stitches/Francesca/Dermabond Dis: Dermabond Ice Pack: Ice On and Off Site JERMAIN CEDEÑO DO Dec 12, 2018 09:51
[2018-12-12] MEDS ORDERED: SEVOFLURANE (ULTANE) 15 ML INHAL SOLN ONE (10:01)
[2018-12-12] MEDS ORDERED: MEPERIDINE (DEMEROL) INJ 50 MG/ML IVP ONE (10:15)
[2018-12-12] MEDS ORDERED: PROMETHAZINE INJ 25 MG/ML (PHENERGAN) AMP IVP ONE (10:15)
[2018-12-12] MEDS ORDERED: KETOROLAC 30 MG/ML VIAL IVP ONE (10:15)
[2018-12-12] MEDS ORDERED: fentaNYL INJECTION 100 MCG/2 ML AMP IVP ONE (10:15)
[2018-12-12] MEDS ORDERED: ONDANSETRON 4 MG/2 ML (SDV) Z0FRAN IVP PRN (10:15)
[2018-12-12] MEDS ORDERED: HYDROcodone/APAP 5 MG/325 MG (LORTAB) TAB ONE (11:35)
[2018-12-12] MEDS ORDERED: HYDROcodone/APAP 5 MG/325 MG (LORTAB) TAB PO ONE (11:45)
--- NOTE | 2018-12-12 12:48 | Anesthesia-General Post-Op ---
General Patient Condition Mental Status/LOC: Same as Preop Cardiovascular: Satisfactory Nausea/Vomiting: Absent Respiratory: Satisfactory Pain: Controlled Complications: Absent Post Op Complications Complications None Follow Up Care/Instructions Patient Instructions None needed. Anesthesia/Patient Condition Patient Condition Patient is doing well, no complaints, stable vital signs, no apparent adverse anesthesia problems. No complications reported per nursing. D/C home per [facility] Criteria: Yes BRITNEY SIERRA CRNA Dec 12, 2018 12:48
--- NOTE | 2018-12-12 13:08 | OPERATIVE REPORT ---
DATE OF SERVICE: 12/12/2018 PREOPERATIVE DIAGNOSIS: Biliary dyskinesia. POSTOPERATIVE DIAGNOSIS: Biliary dyskinesia. PROCEDURE: Laparoscopic cholecystectomy with robot. SURGEON: Reagan Thao DO BOLT LABELER: Juve Martinez DO ANESTHESIA: General endotracheal tube. SPECIMEN: Gallbladder and contents. BLOOD LOSS: Scant. FLUIDS: Per anesthesia. POSTOPERATIVE CONDITION: Stable. INDICATION FOR PROCEDURE: The patient is a 22-year-old female, who was having right upper quadrant pain, abdominal pain and had a HIDA scan performed, which showed a 2.7% ejection fraction, which is indicative of biliary dyskinesia. FINDINGS: The patient had some adhesions of the gallbladder that is usually indicative of previous gallbladder attacks, gallbladder removed without difficulty. PROCEDURE NOTE: After informed consent was obtained, the patient was brought to the operating room, placed on the table in supine position. She was sterilely prepped and draped in normal fashion. Local lidocaine was used to infiltrate the skin below the umbilicus. I made the incision with #11 blade, carried down through skin and subcutaneous tissue, deepened down to subcutaneous tissue with Bovie electrocautery down to fascia. Fascia was incised with Bovie electrocautery, bluntly entered the abdomen, swept a finger around, placed 0 Vicryl [id number] suture, then placed 11 mm trocar port under direct visualization. Created pneumoperitoneum and then placed 3 more ports using local lidocaine. A stab incision with #11 blade and then the 8 mm robotic ports bluntly placed under direct visualization. Once these were in place, one was to the right of the umbilicus and then two on the left side at about 8 cm distances, then came in and docked the robot, hooked up the camera and the instruments and then proceeded to perform the procedure, grasped the gallbladder at the fundus, took in superior direction. There were adhesions noted. These were grasped and then carefully cut away with the Bovie electrocautery on a hook. Once these were completely freed up, then able to grasp down Lina's pouch and pulled in inferolateral direction. We used Firefly to visualize the cystic duct and the common duct as well as the gallbladder and liver, able to start dissecting out the cystic duct and cystic artery. We were able to get around the cystic duct and cystic artery, used the bipolar cautery to cauterize the cystic duct and then entered in [address] and then used the cautery to cut above these and then placed 3 clips, one proximally and 2 distally on the cystic duct and then cut the cystic duct with the cautery, then used the Bovie electrocautery hook to take the gallbladder off the bed of liver without any difficulty. I then placed a bag in the abdomen, placed the gallbladder in the bag and then removed this through the infraumbilical incision. At this point, the patient during the procedure had been in reverse Trendelenburg and rotated to left. At this point, we then undocked the robot and placed the patient supine and then closed all incisions, closing the infraumbilical incision with 3 interrupted 4-0 undyed Monocryl subcuticular stitch, closed the three 8 mm incisions with a single interrupted 4-0 undyed Monocryl subcuticular stitch. The area was cleaned and dried. Dermabond was placed as well as bandage. The patient tolerated the procedure well. Sponge, instrument and needle counts were correct at the end of the case. Job ID: [id number] DocumentID: [id number] Dictated Date: 12/12/2018 09:42:28 Behavioral Science Chair Date: 12/12/2018 13:08:37 Dictated By: REAGAN THAO DO
== END 2018-12-12 12:20 | disposition home or self-care (01) ==
LOC: SDC 07:14
PROVIDERS: ATTEND Surgery
DX: K80.12 Calculus of gallbladder with acute and chronic cholecystitis without obstruction (principal); K82.8 Other specified diseases of gallbladder; E66.9 Obesity, unspecified; Z68.35 Body mass index [BMI] 35.0-35.9, adult; F41.9 Anxiety disorder, unspecified; Q85.00 Neurofibromatosis, unspecified; F17.210 Nicotine dependence, cigarettes, uncomplicated; Z79.899 Other long term (current) drug therapy
CPT/HCPCS: 36415; 84703; 85025; 87081; 88304; 94664

== ENCOUNTER 2019-03-11 17:41 | Emergency (ER) | payer MEDICAID ==
[~2019-03-11] VITALS: Ht 170.2 cm; Wt 104.5 kg
[2019-03-11 18:30] LABS: BASOPHILS # (AUTO) 0.1 10^3/uL (0.0-0.1); BASOPHILS % (AUTO) 0 % (0-10); EOSINOPHILS # (AUTO) 0.2 10^3/uL (0.0-0.3); EOSINOPHILS % (AUTO) 2 % (0-10); HEMATOCRIT 44 % (35-52); HEMOGLOBIN 14.5 G/DL (11.5-16.0); LYMPHOCYTES # (AUTO) 3.4 X 10^3 (1.0-4.0); LYMPHOCYTES % (AUTO) 26 % (12-44); MEAN CORPUSCULAR HEMOGLOBIN 28 PG (25-34); MEAN CORPUSCULAR HGB CONC 33 G/DL (32-36); MEAN CORPUSCULAR VOLUME 85 FL (80-99); MEAN PLATELET VOLUME 9.8 FL (7.4-10.4); MONOCYTES # (AUTO) 0.8 X 10^3 (0.0-1.0); MONOCYTES % (AUTO) 7 % (0-12); NEUTROPHILS # (AUTO) 8.4 X 10^3 (1.8-7.8); NEUTROPHILS % (AUTO) 65 % (42-75); PLATELET COUNT 324 10^3/uL (130-400); RED CELL DISTRIBUTION WIDTH 13.2 % (10.0-14.5); WHITE BLOOD COUNT 12.8 10^3/uL (4.3-11.0)
[2019-03-11 18:45] LABS: ALANINE AMINOTRANSFERASE 17 U/L (0-55); ALBUMIN 4.3 GM/DL (3.2-4.5); ALKALINE PHOSPHATASE 107 U/L (40-136); AMYLASE 52 U/L (25-125); BILIRUBIN,TOTAL 0.2 MG/DL (0.1-1.0); BUN/CREATININE RATIO 14; CALCIUM 9.5 MG/DL (8.5-10.1); CARBON DIOXIDE 24 MMOL/L (21-32); CHLORIDE 108 MMOL/L (98-107); CREATINE KINASE 42 U/L (29-168); CREATININE SERUM 0.96 MG/DL (0.60-1.30); GFR ESTIMATED > 60; GLUCOSE 92 MG/DL (70-105); LIPASE 19 U/L (8-78); MAGNESIUM 1.9 MG/DL (1.6-2.4); POTASSIUM 3.5 MMOL/L (3.6-5.0); SODIUM 140 MMOL/L (135-145); TOTAL PROTEIN 7.4 GM/DL (6.4-8.2)
[2019-03-11 18:52] LABS: CREATINE KINASE MB 0.5 NG/ML (<6.6)
[2019-03-11 18:55] LABS: BILIRUBIN,URINE NEGATIVE (NEGATIVE); CLARITY,URINE SL CLOUDY; COLOR,URINE YELLOW; GLUCOSE, URINE (UA) NEGATIVE (NEGATIVE); KETONES,URINE NEGATIVE (NEGATIVE); LEUKOCYTE ESTERASE ,URINE NEGATIVE (NEGATIVE); NITRITE,URINE NEGATIVE (NEGATIVE); PROTEIN,URINE NEGATIVE (NEGATIVE)
--- NOTE | 2019-03-11 19:07 | Diagnostic Imaging Report ---
Clinical indication: Patient with chest pain and shortness of air. Exam: Chest x-ray PA and lateral views. Comparisons: Chest x-ray dated 11/06/2017. Findings: Lungs/pleura: Lungs are clear. There is no pneumothorax. There is no pleural effusion. Mediastinum: Unremarkable. Pulmonary vasculature: Unremarkable. Heart: Unremarkable. Bones/extrathoracic soft tissue: Unremarkable. Impression: There is no radiographic evidence of acute cardiopulmonary process. Dictated by: Dictated on workstation # [id number]
[2019-03-11 19:13] LABS: BACTERIA,URINE FEW /HPF
[2019-03-11 19:16] LABS: AMPHETAMINE SCREEN, URINE NEGATIVE (NEGATIVE); BARBITURATE SCREEN URINE NEGATIVE (NEGATIVE); BENZODIAZEPINES SCREEN URINE NEGATIVE (NEGATIVE); CANNABINOID SCREEN, URINE NEGATIVE (NEGATIVE); COCAINE SCREEN URINE NEGATIVE (NEGATIVE); METHADONE STAT NEGATIVE (NEGATIVE); METHAMPHETAMINE SCREEN URINE S NEGATIVE (NEGATIVE); OPIATE SCREEN URINE NEGATIVE (NEGATIVE); TRICYCLIC ANTIDEPRESSANTS SCRE NEGATIVE (NEGATIVE)
[2019-03-11 19:16] LABS: INR 0.9 (0.8-1.4); PROTHROMBIN TIME PATIENT 12.6 SEC (12.2-14.7)
[2019-03-11 19:17] LABS: OXYCODONE STAT NEGATIVE (NEGATIVE); PROPOXYPHENE STAT NEGATIVE (NEGATIVE)
--- NOTE | 2019-03-11 19:26 | ED Cardiac General ---
History of Present Illness General Chief Complaint: Chest Pain Stated Complaint: SOB, CP Nursing Triage Note: Pt amb to room #5 with c/o chest discomfort. Pt reports on 03/10/19 @ approx 2200 she developed "sharp" pain to Lt chest wall radiating to medial chest and down Lt arm. Pt reports chest discomfort is associated with SOA. Pt reports pain to be constant rated 7/10. No distress noted. Denies cardiac hx. Source: patient History of Present Illness Date Seen by Provider: Mar 11, 2019 Time Seen by Provider: 17:55 Initial Comments PT ARRIVES VIA POV FROM HOME STATES SHE HAS BEEN HAVING CHEST PAINS AND SHORTNESS OF BREATH SINCE 2200 LAST NIGHT STATES SHE WAS LAYING ON THE COUCH WHEN SYMPTOMS BEGAN PAIN WAXES AND WANES, BUT DOES NOT GO AWAY COMPLETELY NOTHING IMPROVES PAIN, BUT IS WORSE IF SHE LAYS FLAT PAIN IS IN LEFT UPPER CHEST, AND IN UPPER STERNUM NO COUGH OR RECENT ILLNESS NO FEVER NO NAUSEA/VOMITING NO ABDOMINAL PAIN OR BACK PAIN HAS NOT TAKEN ANYTHING FOR PAOIN DENIES ANY HISTORY OF SIMILAR STATES SHE HAD ASTHMA CHILD BUT HAS NOT HAD ANY PROBLEMS FOR YEARS. PT SMOKES 1/2 PPD, PLUS SHE VAPES. HX OF SMOKING METH AND THC, BUT DENIES RECENT USE. NTG SL SURVEILLANCE MANAGER: No ASA po SURVEILLANCE MANAGER: No PCP: DR. SMITH--HAD ROUTINE APPOINTMENT 02/21/19--STATES "FOR MEDICATION REFILLS" --STATES HE INCREASED HER DOSES, BUT ALSO STATES THAT SHE HAS NOT BEEN TAKING HER MEDICATIONS FOR A FEW MONTHS, BECAUSE THEY DON'T HELP. IS SUPPOSED TO BE TAKING TOPAMAX FOR HEADACHES, AND DULOXETINE FOR DEPRESSION/ANXIETY. Allergies and Home Medications Allergies Coded Allergies: No Known Drug Allergies (Unverified , 10/04/08) Home Medications Duloxetine HCl 60 Mg Capsule.dr, 60 MG PO BID, (Reported) Hydrocodone Bit/Acetaminophen 1 Tab Tab, 1 TAB PO Q6H PRN for PAIN-MODERATE Prescribed by: JERMAIN CEDEÑO on 12/12/18949 Methylprednisolone 4 Mg Tab.ds.pk, 4 MG PO UD Prescribed by: DEENA LANCE on 03/11/191952 Topiramate 100 Mg Tablet, 100 MG PO BID, (Reported) Patient Home Medication List Home Medication List Reviewed: Yes Review of Systems Review of Systems Constitutional: no symptoms reported; No chills, No diaphoresis, No dizziness, No fever EENTM: No Symptoms Reported Respiratory: See HPI, Shortness of Air Cardiovascular: See HPI, Chest Pain; Denies Edema, Denies Irregular Heart Rate, Denies Lightheadedness, Denies Palpitations, Denies Syncope Gastrointestinal: No Symptoms Reported; Denies Abdominal Pain, Denies Nausea, Denies Vomiting Genitourinary: No Symptoms Reported, Other (LMP --ENDED 02/22/19. NO CONTROL) Musculoskeletal: no symptoms reported Skin: no symptoms reported Psychiatric/Neurological: No Symptoms Reported Endocrine: No Symptoms Reported Hematologic/Lymphatic: No Symptoms Reported Past Mvjvggp-[id number]-[id number] Hx Past Med/Social Hx: Reviewed and Corrections made Patient Social History Alcohol Use: Past History (HX OF ETOH USE) Recreational Drug Use: Yes (SMOKED METH AND THC-DENIES RECENT USE, PER PT 03/11/19) Drug of Choice: SMOKED METH AND THC-DENIES RECENT USE PER PT ON 03/11/19 Smoking Status: Current Everyday Smoker (1 /2 PPD PLUS VAPES) Type Used: Cigarettes (1/2 PPD), Electronic/Vapor, Smokeless Tobacco 2nd Hand Smoke Exposure: Yes Recent Foreign Travel: No Contact w/Someone Who Travel: No Recent Infectious Disease Expo: No Recent Hopitalizations: No Immunizations Up To Date Tetanus Booster (TDap): Less than 5yrs PED Vaccines UTD: Yes Seasonal Allergies Seasonal Allergies: Yes Past Medical History Surgeries: Yes (WISDOM TEETH REMOVED; NEUROFIBROMA REMOVED FROM NECK; FUSION OF C3-C7) Gallbladder, Neurological, Orthopedic Respiratory: No Cardiac: No Neurological: Yes Headaches /Migraines Reproductive Disorders: No Female Reproductive Disorders: Denies Sexually Transmitted Disease: No HIV/AIDS: No Genitourinary: Yes UTI-Chronic Gastrointestinal: Yes (S/P CHOLECYSTECTOMY) Gall Bladder Disease Musculoskeletal: Yes (NEUROFIBROMATOSIS; NEUROFIBROMA REMOVED FROM NECK; CERVICAL SPINE FUSION C3-C7) Endocrine: No HEENT: No Cancer: No Psychosocial: No Integumentary: No Blood Disorders: No Adverse Reaction/Blood Tranf: No Family Medical History Patient reports no known family medical history. Physical Exam Vital Signs Vital Signs - First Documented 03/11/19 17:45 Temp 36.8 Pulse 98 Resp 18 B/P (MAP) 130/80 (97) Pulse Ox 97 O2 Delivery Room Air Capillary Refill : Less Than 3 Seconds Height, Weight, BMI Height: 5'7.00" Weight: 228lbs. 4.0oz. [id number]; 36.00 BMI Method:Stated General Appearance: No Apparent Distress, Obese, Other (DOES NOT APPEAR TO BE IN ANY DISCOMFORT OR DISTRESS, FULL MAKEUP AND PERFUME. SMILING) HEENT: PERRL/EOMI Neck: Full Range of Motion, Normal Inspection, Non Tender, Supple Respiratory: Normal Breath Sounds, No Accessory Muscle Use, No Respiratory Distress, Other (TENDERNESS TO MID/UPPER STERNUM AND CHEST AND LEFT UPPER CHEST--PALPATION REPRODUCES PAIN ) Cardiovascular: Regular Rate, Rhythm, No Edema, No JVD, No Murmur, Normal Peripheral Pulses Gastrointestinal: Normal Bowel Sounds, No Organomegaly, No Pulsatile Mass, Non Tender, Soft Extremity: Normal Capillary Refill, Normal Inspection, Normal Range of Motion, Non Tender, No Calf Tenderness, No Pedal Edema Neurologic/Psychiatric: Alert, Oriented x3, No Motor/Sensory Deficits, Normal Mood/Affect, 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 Norm as Tested Skin: Normal Color, Warm/Dry Progress/Results/Core Measures Results/Orders Lab Results Laboratory Tests Test 03/11/19 17:50 03/11/19 18:23 Range/Units White Blood Count 12.8 H 4.3-11.0 10^3/uL Red Blood Count 5.12 4.35-5.85 10^6/uL Hemoglobin 14.5 11.5-16.0 G/DL Hematocrit 44 35-52 % Mean Corpuscular Volume 85 80-99 FL Mean Corpuscular Hemoglobin 28 25-34 PG Mean Corpuscular Hemoglobin Concent 33 32-36 G/DL Red Cell Distribution Width 13.2 10.0-14.5 % Platelet Count 324 130-400 10^3/uL Mean Platelet Volume 9.8 7.4-10.4 FL Neutrophils (%) (Auto) 65 42-75 % Lymphocytes (%) (Auto) 26 12-44 % Monocytes (%) (Auto) 7 0-12 % Eosinophils (%) (Auto) 2 0-10 % Basophils (%) (Auto) 0 0-10 % Neutrophils # (Auto) 8.4 H 1.8-7.8 X 10^3 Lymphocytes # (Auto) 3.4 1.0-4.0 X 10^3 Monocytes # (Auto) 0.8 0.0-1.0 X 10^3 Eosinophils # (Auto) 0.2 0.0-0.3 10^3/uL Basophils # (Auto) 0.1 0.0-0.1 10^3/uL Prothrombin Time 12.6 12.2-14.7 SEC INR Comment 0.9 0.8-1.4 Activated Partial Thromboplast Time 28 24-35 SEC Sodium Level 140 135-145 MMOL/L Potassium Level 3.5 L 3.6-5.0 MMOL/L Chloride Level 108 H 98-107 MMOL/L Carbon Dioxide Level 24 21-32 MMOL/L Anion Gap 8 5-14 MMOL/L Blood Urea Nitrogen 13 7-18 MG/DL Creatinine 0.96 0.60-1.30 MG/DL Estimat Glomerular Filtration Rate > 60 BUN/Creatinine Ratio 14 Glucose Level 92 70-105 MG/DL Calcium Level 9.5 8.5-10.1 MG/DL Corrected Calcium 9.3 8.5-10.1 MG/DL Magnesium Level 1.9 1.6-2.4 MG/DL Total Bilirubin 0.2 0.1-1.0 MG/DL Aspartate Amino Transf (AST/SGOT) 12 5-34 U/L Alanine Aminotransferase (ALT/SGPT) 17 0-55 U/L Alkaline Phosphatase 107 40-136 U/L Total Creatine Kinase 42 29-168 U/L Creatine Kinase MB 0.5 <6.6 NG/ML Myoglobin 13.9 10.0-92.0 NG/ML Troponin I < 0.028 <0.028 NG/ML B-Type Natriuretic Peptide < 10.0 <100.0 PG/ML Total Protein 7.4 6.4-8.2 GM/DL Albumin 4.3 3.2-4.5 GM/DL Amylase Level 52 25-125 U/L Lipase 19 8-78 U/L Serum Alcohol < 10 <10 MG/DL Urine Color YELLOW Urine Clarity SL CLOUDY Urine pH 6.0 5-9 Urine Specific [place] 1.025 H 1.016-1.022 Urine Protein NEGATIVE NEGATIVE Urine Glucose (UA) NEGATIVE NEGATIVE Urine Ketones NEGATIVE NEGATIVE Urine Nitrite NEGATIVE NEGATIVE Urine Bilirubin NEGATIVE NEGATIVE Urine Urobilinogen 0.2 < = 1.0 MG/DL Urine Leukocyte Esterase NEGATIVE NEGATIVE Urine RBC (Auto) NEGATIVE NEGATIVE Urine RBC NONE /HPF Urine WBC 2-5 /HPF Urine Squamous Epithelial Cells 10-25 H /HPF Urine Crystals NONE /LPF Urine Bacteria FEW H /HPF Urine Casts NONE /LPF Urine Mucus NEGATIVE /LPF Urine Culture Indicated NO Urine Opiates Screen NEGATIVE NEGATIVE Urine Oxycodone Screen NEGATIVE NEGATIVE Urine Methadone Screen NEGATIVE NEGATIVE Urine Propoxyphene Screen NEGATIVE NEGATIVE Urine Barbiturates Screen NEGATIVE NEGATIVE Ur Tricyclic Antidepressants Screen NEGATIVE NEGATIVE Urine Phencyclidine Screen NEGATIVE NEGATIVE Urine Amphetamines Screen NEGATIVE NEGATIVE Urine Methamphetamines Screen NEGATIVE NEGATIVE Urine Benzodiazepines Screen NEGATIVE NEGATIVE Urine Cocaine Screen NEGATIVE NEGATIVE Urine Cannabinoids Screen NEGATIVE NEGATIVE My Orders Orders - DEENA LANCE DO Chest Pa/Lat (2 View) (03/11/19 17:59) Urine Bedside (03/11/19 17:59) Cbc With Automated Diff (03/11/19 18:19) Magnesium (03/11/19 18:19) Ekg Tracing (03/11/19 18:19) Comprehensive Metabolic Panel (03/11/19 18:19) Myoglobin Serum (03/11/19 18:19) Protime With Inr (03/11/19 18:19) Partial Thromboplastin Time (03/11/19 18:19) O2 (03/11/19 18:19) Monitor-Rhythm Ecg Trace Only (03/11/19 18:19) Ed Iv/Invasive Line Start (03/11/19 18:19) Creatine Kinase (03/11/19 18:19) Creatine Kinase Mb (03/11/19 18:19) Lipase (03/11/19 18:19) Amylase (03/11/19 18:19) BNP (03/11/19 18:19) Troponin I (03/11/19 18:19) Alcohol (03/11/19 18:19) Drug Screen Stat (Urine) (03/11/19 18:19) Ua Culture If Indicated (03/11/19 18:19) Ketorolac Injection (Toradol Injection) (03/11/19 19:30) Medications Given in ED Current Medications Medications Dose Ordered Sig/Suzette Route Start Time Stop Time Status Last Admin Dose Admin Ketorolac Tromethamine 30 mg ONCE ONCE IVP 03/11/19 19:30 03/11/19 19:31 DC 03/11/19 19:35 30 MG Vital Signs/I&O 03/11/19 03/11/19 03/11/19 17:45 17:45 20:11 Temp 36.8 36.0 Pulse 98 93 Resp 18 14 B/P (MAP) 130/80 (97) 116/73 Pulse Ox 97 97 O2 Delivery Room Air Room Air Room Air Blood Pressure Mean: 97 POS Progress Progress Note : Progress Note UNEVENTFUL ER STAY Initial ECG Impression Date: Mar 11, 2019 Initial ECG Impression Time: 17:50 Initial ECG Rate: 95 Initial ECG Rhythm: Normal Sinus Initial ECG Comparisson: No Previous ECG Available Diagnostic Imaging Comments CXR--NO ACUTE PROCESS, PER RADIOLOGIST REPORT AT 1926 Reviewed: Reviewed by Me Departure Impression Primary Impression: Chest wall pain Disposition: HOME, SELF-CARE Condition: Stable Departure-Patient Inst. Referrals: JAYLA SMITH MD (PCP/Family) Primary Care Physician Patient Instructions: Chest Pain That Is Not Caused by the Heart (DC), Costochondritis (DC) Add. Discharge Instructions: MOIST HEAT TO AREA AT 20 MINUTE INTERVALS ACTIVITIES TOLERATED FOLLOW UP WITH DR. SMITH THIS WEEK FOR FURTHER CARE All discharge instructions reviewed with patient and/or family. Voiced und erstanding. Scripts Methylprednisolone (Medrol) 4 Mg Tab.ds.pk 4 MG PO UD, #1 PKG Prov: DEENA LANCE DO 03/11/19 DEENA LANCE DO Mar 11, 2019 19:26 POS
[2019-03-11] MEDS ORDERED: KETOROLAC 30 MG/ML VIAL IVP ONE (19:30)
[2019-03-11] MEDS ORDERED: METH4TAB PO (19:53)
[2019-03-11 20:11] VITALS: BP 116/73
== END 2019-03-11 20:12 | disposition home or self-care (01) ==
LOC: EDUNIT# 17:41 → ER 17:42
DX: R07.89 Other chest pain (principal); G43.909 Migraine, unspecified, not intractable, without status migrainosus; F17.210 Nicotine dependence, cigarettes, uncomplicated; Z87.440 Personal history of urinary (tract) infections; Z91.14 Patient's other noncompliance with medication regimen
CPT/HCPCS: 36415; 71046; 80053; 80306; 80320; 81000; 82150; 82550; 82553; 83690; 83735; 83874; 83880; 84484; 84703; 85025; 85610; 85730; 93005; 93041; 96374

== ENCOUNTER 2019-03-24 03:07 | Emergency (ER) | payer MEDICAID ==
[~2019-03-24] VITALS: Ht 170.2 cm; Wt 112.8 kg
[~2019-03-24 03:07] MED LIST changes: +METH4TAB PO
[2019-03-24] MEDS ORDERED: FAMOTIDINE 20 MG (PEPCID) TABLET PO STA (03:22)
[2019-03-24] MEDS ORDERED: SUMA100T3 (03:24)
[2019-03-24] MEDS ORDERED: QUET25TA73 (03:24)
[2019-03-24] MEDS ORDERED: ARIP2TAB11 (03:24)
[2019-03-24] MEDS ORDERED: LIDOCAINE 2% VISCOUS 15 ML UDC PO ONE (03:30)
[2019-03-24] MEDS ORDERED: ANTACID SUSP 30 ML UDC (MYLANTA) PO ONE (03:30)
--- NOTE | 2019-03-24 03:34 | ED Chest Pain ---
General Chief Complaint: Chest Wall Stated Complaint: CP, CONFUSION Source: patient, other Exam Limitations: no limitations History of Present Illness Date Seen by Provider: Mar 24, 2019 Time Seen by Provider: 03:14 Initial Comments Patient presents to ER by private conveyance from home with chief complaint that about an hour and 15 minutes prior to arrival she was sitting up eating a sandwich watching her child ran amok around the house. She states she has a history of chest wall pain and was here 12 days ago worked up for the same thing. She has no history of heart disease or familial history of early onset artery disease or sudden cardiac . She's not having any cough fevers chills nausea vomiting diarrhea. She did not take anything for her pain. He says she also feels like she is out of this universe. She says she knows she is talking to the examiner but feels like her body is in another universe. She says she does not take any medicines routinely. Review of the pharmacy shows that 2 days ago she did feel some of her migraine medicines. She admits to using marijuana but denies ever using methamphetamine despite having admitted to its use in the past. Allergies and Home Medications Allergies Coded Allergies: No Known Drug Allergies (Unverified , 10/04/08) Home Medications Duloxetine HCl 60 Mg Capsule.dr, 60 MG PO BID, (Reported) Patient Home Medication List Home Medication List Reviewed: Yes Review of Systems Review of Systems Constitutional: No chills, No fever EENTM: No Blurred Vision, No Double Vision Respiratory: Denies Cough, Denies Shortness of Air, Denies SOA With Exertion, Denies Stridor, Denies Wheezing Cardiovascular: See HPI, Chest Pain; Denies Edema, Denies Irregular Heart Rate, Denies Lightheadedness Gastrointestinal: Denies See HPI, Denies Abdominal Pain, Denies Constipated, Denies Diarrhea, Denies Nausea Genitourinary: Denies Burning, Denies Discharge Musculoskeletal: No back pain, No neck pain Skin: No pruritus, No rash Psychiatric/Neurological: Denies Headache, Denies Numbness Past Povicav-Xvajpk-Luezgt Hx Patient Social History Alcohol Use: Denies Use Recreational Drug Use: Yes Drug of Choice: SMOKED METH AND THC-DENIES RECENT USE PER PT ON 03/11/19 Smoking Status: Current Everyday Smoker Type Used: Cigarettes, Electronic/Vapor, Smokeless Tobacco 2nd Hand Smoke Exposure: Yes Recent Foreign Travel: No Contact w/Someone Who Travel: No Recent Hopitalizations: No Immunizations Up To Date Tetanus Booster (TDap): Less than 5yrs PED Vaccines UTD: Yes Seasonal Allergies Seasonal Allergies: Yes Past Medical History Surgeries: Yes (WISDOM TEETH REMOVED; NEUROFIBROMA REMOVED FROM NECK; FUSION OF C3-C7) Gallbladder, Neurological, Orthopedic Respiratory: No Cardiac: No Neurological: Yes Headaches /Migraines Reproductive Disorders: No Female Reproductive Disorders: Denies Sexually Transmitted Disease: No HIV/AIDS: No Genitourinary: Yes UTI-Chronic Gastrointestinal: Yes (S/P CHOLECYSTECTOMY) Gall Bladder Disease Musculoskeletal: Yes Endocrine: No HEENT: No Cancer: No Psychosocial: No Integumentary: No Blood Disorders: No Adverse Reaction/Blood Tranf: No Family Medical History Patient reports no known family medical history. Physical Exam Vital Signs Vital Signs - First Documented 03/24/19 03:15 Temp 36.5 Pulse 87 Resp 18 B/P (MAP) 122/83 (96) Pulse Ox 97 O2 Delivery Room Air Capillary Refill : Height, Weight, BMI Height: 5'7.00" Weight: 228lbs. 4.0oz. [id number]; 36.00 BMI Method:Stated General Appearance: No Apparent Distress (sitting upright in no apparent distress, smiling and answering all questions), Obese HEENT: PERRL/EOMI, Pharynx Normal, Moist Mucous Membranes Neck: Full Range of Motion, Supple Respiratory: No Chest Non Tender (chest pain is reproduced by direct palpation of the anterior chest wall); Lungs Clear, Normal Breath Sounds, No Accessory Muscle Use, No Respiratory Distress Cardiovascular: Regular Rate, Rhythm, No Edema, No Murmur, Normal Peripheral Pulses Gastrointestinal: Normal Bowel Sounds, Non Tender, Soft Extremity: Normal Capillary Refill, Normal Inspection, Normal Range of Motion, Non Tender, No Calf Tenderness, No Pedal Edema Neurologic/Psychiatric: Alert, Oriented x3, No Motor/Sensory Deficits, Normal Mood/Affect Skin: Normal Color, Warm/Dry Progress/Results/Core Measures Results/Orders Lab Results Laboratory Tests Test 03/24/19 03:34 Range/Units Urine Color YELLOW Urine Clarity CLEAR Urine pH 6.0 5-9 Urine Specific [place] 1.020 1.016-1.022 Urine Protein NEGATIVE NEGATIVE Urine Glucose (UA) NEGATIVE NEGATIVE Urine Ketones NEGATIVE NEGATIVE Urine Nitrite NEGATIVE NEGATIVE Urine Bilirubin NEGATIVE NEGATIVE Urine Urobilinogen 0.2 < = 1.0 MG/DL Urine Leukocyte Esterase NEGATIVE NEGATIVE Urine RBC (Auto) NEGATIVE NEGATIVE Urine RBC NONE /HPF Urine WBC NONE /HPF Urine Squamous Epithelial Cells 2-5 /HPF Urine Crystals NONE /LPF Urine Bacteria TRACE /HPF Urine Casts NONE /LPF Urine Mucus NEGATIVE /LPF Urine Culture Indicated NO Urine Opiates Screen NEGATIVE NEGATIVE Urine Oxycodone Screen NEGATIVE NEGATIVE Urine Methadone Screen NEGATIVE NEGATIVE Urine Propoxyphene Screen NEGATIVE NEGATIVE Urine Barbiturates Screen NEGATIVE NEGATIVE Ur Tricyclic Antidepressants Screen NEGATIVE NEGATIVE Urine Phencyclidine Screen NEGATIVE NEGATIVE Urine Amphetamines Screen NEGATIVE NEGATIVE Urine Methamphetamines Screen NEGATIVE NEGATIVE Urine Benzodiazepines Screen NEGATIVE NEGATIVE Urine Cocaine Screen NEGATIVE NEGATIVE Urine Cannabinoids Screen NEGATIVE NEGATIVE My Orders Orders - DANN ORDAZ Ekg Tracing (03/24/19 03:16) Lidocaine 2% Viscous 15 Ml (Xylocaine Vi (03/24/19 03:30) Famotidine Tablet (Pepcid Tablet) (03/24/19 03:22) Antacid Suspension (Mylanta Suspension (03/24/19 03:30) Drug Screen Stat (Urine) (03/24/19 03:34) Ua Culture If Indicated (03/24/19 03:34) Urine Bedside (03/24/19 03:34) Chest Pa/Lat (2 View) (03/24/19 03:34) Medications Given in ED Current Medications Medications Dose Ordered Sig/Suzette Route Start Time Stop Time Status Last Admin Dose Admin Al Hydrox/Mg Hydrox/Simethicone 30 ml ONCE ONCE PO 03/24/19 03:30 03/24/19 03:31 DC 03/24/19 03:31 30 ML Lidocaine HCl 15 ml ONCE ONCE PO 03/24/19 03:30 03/24/19 03:31 DC 03/24/19 03:32 15 ML Vital Signs/I&O 03/24/19 03:15 Temp 36.5 Pulse 87 Resp 18 B/P (MAP) 122/83 (96) Pulse Ox 97 O2 Delivery Room Air Progress Progress Note #1: Time: 03:30 Progress Note She did fill methylprednisolone on 11 March. She could be experiencing some s cherelle effects of the steroids. A urine drug screen will be helpful for ruling out methamphetamine intoxication. We'll get a urine chest x-ray. She has no signs of a DVT, tachycardia or hypoxia. No history of support blood clots or pulmonary embolism ruled out by a well's score of 0.0 points; Low risk group: 1.3% chance of PE in an ED population. Perc score 0 criteria. No need for further workup, as <2% chance of PE. We'll trial a GI cocktail looking for possible GERD as a source of her discomfort. She has no wheezing to suggest she has asthma. If this does not help then we can give Toradol and recommend follow- up for her chronic chest pain. She is alert and oriented 4. No irritability on EKG or historical clues to suggest a pericarditis/myocarditis. She has no clinical history to support pneumonia we will get a 2 view chest x- ray looking for widened mediastinum, pneumothorax or other dangerous diagnoses. She is sitting upright in no apparent distress. Finally her chest wall pain is reproduced by direct palpation over the manubrium. Costochondritis is most likely. Progress Note #2: Time: 04:26 Progress Note Patient is not having any more psych concerns at this time. Her pain did significantly after the GI cocktail. We'll offer her a Toradol shot and encourage her to follow-up with Dr. De Luna discuss management of GERD and costochondritis outpatient. Initial ECG Impression Date: Mar 24, 2019 Initial ECG Impression Time: 03:19 Initial ECG Rate: 80 Initial ECG Rhythm: Normal Sinus Initial ECG Intervals: Normal Initial ECG Impression: Normal Initial ECG Comparisson: Unchanged Comment Normal sinus rhythm unchanged from 03/11/19. No clinically relevant ST elevation or depression. Diagnostic Imaging Diagonstic Imaging: Xray Plain Films/CT/US/NM/MRI: chest (2v) Comments No acute cardiopulmonary processes noted. No widened mediastinum, infiltrates, pneumothorax or other parenchymal concerns. No acute osseous abnormalities. No acute soft tissue changes. Reviewed: Reviewed by Me Departure Impression Primary Impression: Costochondritis Additional Impression: GERD (gastroesophageal reflux disease) Qualified Codes: K21.9 - Gastro-esophageal reflux disease without esophagitis Disposition: HOME, SELF-CARE Condition: Stable Departure-Patient Inst. Decision time for Depature: 04:23 Referrals: JAYLA DE LUNA MD (PCP/Family) Primary Care Physician Patient Instructions: Costochondritis (DC) Add. Discharge Instructions: Tylenol 1000 mg every 8 hours as needed for pain. Ibuprofen 800 mg 3 times a day on a schedule for the next 1-2 weeks until your chest wall pain goes away. Omeprazole 20 mg once or twice a day in addition to Rolaids, Maalox, Tums as needed for any breakthrough indigestion. Topical creams such as icy hot, Biofreeze or Aspercreme or recommended. Follow-up with your primary care doctor to discuss further workup and management of your symptoms. All discharge instructions reviewed with patient and/or family. Voiced understanding. DANN ORDAZ Mar 24, 2019 03:33 POS
[2019-03-24 03:41] LABS: BILIRUBIN,URINE NEGATIVE (NEGATIVE); CLARITY,URINE CLEAR; COLOR,URINE YELLOW; GLUCOSE, URINE (UA) NEGATIVE (NEGATIVE); KETONES,URINE NEGATIVE (NEGATIVE); LEUKOCYTE ESTERASE ,URINE NEGATIVE (NEGATIVE); NITRITE,URINE NEGATIVE (NEGATIVE); PROTEIN,URINE NEGATIVE (NEGATIVE)
[2019-03-24 03:48] LABS: BACTERIA,URINE TRACE /HPF
[2019-03-24 03:50] LABS: AMPHETAMINE SCREEN, URINE NEGATIVE (NEGATIVE); BARBITURATE SCREEN URINE NEGATIVE (NEGATIVE); BENZODIAZEPINES SCREEN URINE NEGATIVE (NEGATIVE); CANNABINOID SCREEN, URINE NEGATIVE (NEGATIVE); COCAINE SCREEN URINE NEGATIVE (NEGATIVE); METHADONE STAT NEGATIVE (NEGATIVE); METHAMPHETAMINE SCREEN URINE S NEGATIVE (NEGATIVE); OPIATE SCREEN URINE NEGATIVE (NEGATIVE); OXYCODONE STAT NEGATIVE (NEGATIVE); PROPOXYPHENE STAT NEGATIVE (NEGATIVE); TRICYCLIC ANTIDEPRESSANTS SCRE NEGATIVE (NEGATIVE)
[2019-03-24] MEDS ORDERED: KETOROLAC 60 MG/2 ML VIAL IM ONE (04:30)
[2019-03-24 04:34] VITALS: BP 122/83
--- NOTE | 2019-03-24 05:27 | Diagnostic Imaging Report ---
INDICATION: Chest wall pain COMPARISON: 03/11/2019 FINDINGS: Frontal and lateral views of the chest demonstrate normal heart size and pulmonary vascularity. The lungs are clear. There are no signs of infiltrate, pleural effusions or pneumothoraces. The visualized osseous structures show no acute abnormalities. IMPRESSION: 1. No acute process. No signs of infiltrates, effusions or pneumothoraces. Dictated by: Dictated on workstation # [id number]
== END 2019-03-24 04:35 | disposition home or self-care (01) ==
LOC: EDUNIT# 03:07 → ER 03:09
DX: M94.0 Chondrocostal junction syndrome [Tietze] (principal); K21.9 Gastro-esophageal reflux disease without esophagitis; G43.909 Migraine, unspecified, not intractable, without status migrainosus; F17.290 Nicotine dependence, other tobacco product, uncomplicated; F17.210 Nicotine dependence, cigarettes, uncomplicated; Z87.440 Personal history of urinary (tract) infections; Z90.49 Acquired absence of other specified parts of digestive tract
CPT/HCPCS: 71046; 80306; 81000; 84703; 93005

== ENCOUNTER 2020-05-05 18:39 | Emergency (ER) | payer MEDICAID ==
[~2020-05-05] VITALS: Ht 170 cm; Wt 122.0 kg
[~2020-05-05 18:39] MED LIST changes: +ARIP2TAB20; +QUET25TA73; +SUMA100T3
--- NOTE | 2020-05-05 18:54 | ED General ---
General Stated Complaint: MIGRAINE,CP, COUGH,SOB,N/V Source of Information: Patient Exam Limitations: No Limitations History of Present Illness Date Seen by Provider: May 05, 2020 Time Seen by Provider: 18:54 Initial Comments To ER with a 5-day history of headache, vomiting once today, cough, sore throat, chest pain, shortness of breath, cough, nasal congestion and body aches. She had a negative Covid test yesterday. Her roommate works at [employer] and to get swabbed twice a week and was most recently negative Timing/Duration: 1-2 Days Severity: Moderate Associated Systoms: Denies Symptoms Allergies and Home Medications Allergies Coded Allergies: No Known Drug Allergies (Unverified , 10/04/08) Home Medications Duloxetine HCl 60 Mg Capsule.dr, 60 MG PO BID, (Reported) Patient Home Medication List Home Medication List Reviewed: Yes Review of Systems Review of Systems Constitutional: see HPI, chills, malaise, weakness EENTM: see HPI, nose congestion, throat pain Respiratory: cough, short of breath Cardiovascular: no symptoms reported Genitourinary: no symptoms reported Musculoskeletal: no symptoms reported Skin: no symptoms reported Psychiatric/Neurological: No Symptoms Reported Hematologic/Lymphatic: No Symptoms Reported Past Gzfalkf-Vvjuaz-Iqhzos Hx Patient Social History Drug of Choice: denies Type Used: Cigarettes, Electronic/Vapor, Smokeless Tobacco Former Smoker, Quit: Mar 17, 2019 2nd Hand Smoke Exposure: Yes Recent Hopitalizations: No Immunizations Up To Date Tetanus Booster (TDap): Less than 5yrs PED Vaccines UTD: Yes Seasonal Allergies Seasonal Allergies: Yes Past Medical History Surgeries: Yes (WISDOM TEETH REMOVED; NEUROFIBROMA REMOVED FROM NECK; FUSION OF C3-C7) Gallbladder, Neurological, Orthopedic Respiratory: No Cardiac: No Neurological: Yes Headaches /Migraines Reproductive Disorders: No Female Reproductive Disorders: Denies Sexually Transmitted Disease: No HIV/AIDS: No Genitourinary: Yes UTI-Chronic Gastrointestinal: Yes Gall Bladder Disease Musculoskeletal: No Endocrine: No HEENT: No Cancer: No Psychosocial: No Integumentary: No Blood Disorders: No Adverse Reaction/Blood Tranf: No Family Medical History Patient reports no known family medical history. Physical Exam Vital Signs Vital Signs - First Documented 05/05/20 18:50 Temp 36.6 Pulse 101 Resp 20 B/P (MAP) 129/79 (96) Pulse Ox 98 Capillary Refill : Height, Weight, BMI Height: 5'7.00" Weight: 228lbs. 4.0oz. 103.341020xh; 38.00 BMI Method:Stated General Appearance: No Apparent Distress, WD/WN Eyes: Bilateral Eye Normal Inspection, Bilateral Eye PERRL, Bilateral Eye EOMI HEENT: PERRL/EOMI, TMs Normal Neck: Full Range of Motion, Normal Inspection Respiratory: No Accessory Muscle Use, No Respiratory Distress Cardiovascular: Regular Rate, Rhythm Gastrointestinal: Normal Bowel Sounds, Non Tender, Soft Extremity: Normal Capillary Refill, Normal Inspection Neurologic/Psychiatric: Alert, Oriented x3 Skin: Normal Color, Warm/Dry Progress/Results/Core Measures Suspected Sepsis SIRS Temperature: Pulse: Respiratory Rate: Laboratory Tests 05/05/20 19:00: White Blood Count 9.1 Blood Pressure / Mean: Laboratory Tests 05/05/20 19:00: Creatinine 0.85, Platelet Count 320, Total Bilirubin 0.3 Results/Orders Lab Results Laboratory Tests Test 05/05/20 19:00 Range/Units White Blood Count 9.1 4.3-11.0 10^3/uL Red Blood Count 5.07 3.80-5.11 10^6/uL Hemoglobin 13.8 11.5-16.0 g/dL Hematocrit 43 35-52 % Mean Corpuscular Volume 84 80-99 fL Mean Corpuscular Hemoglobin 27 25-34 pg Mean Corpuscular Hemoglobin Concent 33 32-36 g/dL Red Cell Distribution Width 12.3 10.0-14.5 % Platelet Count 320 130-400 10^3/uL Mean Platelet Volume 9.7 9.0-12.2 fL Immature Granulocyte % (Auto) 0 % Neutrophils (%) (Auto) 58 42-75 % Lymphocytes (%) (Auto) 34 12-44 % Monocytes (%) (Auto) 5 0-12 % Eosinophils (%) (Auto) 3 0-10 % Basophils (%) (Auto) 0 0-10 % Neutrophils # (Auto) 5.3 1.8-7.8 10^3/uL Lymphocytes # (Auto) 3.1 1.0-4.0 10^3/uL Monocytes # (Auto) 0.4 0.0-1.0 10^3/uL Eosinophils # (Auto) 0.3 0.0-0.3 10^3/uL Basophils # (Auto) 0.0 0.0-0.1 10^3/uL Immature Granulocyte # (Auto) 0.0 0.0-0.1 10^3/uL D-Dimer 0.28 0.00-0.49 UG/ML Sodium Level 140 135-145 MMOL/L Potassium Level 3.7 3.6-5.0 MMOL/L Chloride Level 105 98-107 MMOL/L Carbon Dioxide Level 28 21-32 MMOL/L Anion Gap 7 5-14 MMOL/L Blood Urea Nitrogen 9 7-18 MG/DL Creatinine 0.85 0.60-1.30 MG/DL Estimat Glomerular Filtration Rate > 60 BUN/Creatinine Ratio 11 Glucose Level 96 70-105 MG/DL Calcium Level 9.3 8.5-10.1 MG/DL Corrected Calcium 9.2 8.5-10.1 MG/DL Total Bilirubin 0.3 0.1-1.0 MG/DL Aspartate Amino Transf (AST/SGOT) 14 5-34 U/L Alanine Aminotransferase (ALT/SGPT) 13 0-55 U/L Alkaline Phosphatase 102 40-136 U/L Troponin I < 0.028 <0.028 NG/ML C-Reactive Protein High Sensitivity 1.17 H 0.00-0.50 MG/DL Total Protein 7.6 6.4-8.2 GM/DL Albumin 4.1 3.2-4.5 GM/DL Serum Test, Qualitative NEGATIVE NEGATIVE Coronavirus 2019 ([facility]) Negative Negative Micro Results Microbiology 05/05/20 Influenza Types A,B Antigen ([facility]CI[facility]) - Final, Complete My Orders Orders - DEZ DURAN NUTRITIONIST Troponin I (05/05/20 18:47) Fibrin Degradation Products (05/05/20 18:47) Hs C Reactive Protein (05/05/20 18:47) Cbc With Automated Diff (05/05/20 18:47) Comprehensive Metabolic Panel (05/05/20 18:47) Hcg,Qualitative Serum (05/05/20 18:47) Ua Culture If Indicated (05/05/20 18:54) Chest 1 View, Ap/Pa Only (05/05/20 18:54) Ibuprofen Tablet (Motrin Tablet) (05/05/20 19:00) Oxymetazoline 0.05% Nasal Brillion (Afrin 0. (05/05/20 21:00) Ondansetron Injection (Zofran Injectio (05/05/20 19:00) Oxymetazoline 0.05% Nasal Brillion (Afrin 0. (05/05/20 18:56) Ondansetron Injection (Zofran Injectio (05/05/20 18:56) Covid 19 Inhouse Test (05/05/20 19:00) Influenza A And B Antigens (05/05/20 19:00) Procalcitonin (Pct) (05/05/20 19:00) Ibuprofen Tablet (Motrin Tablet) (05/05/20 18:56) Medications Given in ED Current Medications Medications Dose Ordered Sig/Suzette Route Start Time Stop Time Status Last Admin Dose Admin Ibuprofen 800 mg ONCE ONCE PO 05/05/20 19:00 05/05/20 19:01 DC 05/05/20 19:10 800 MG Ondansetron HCl 8 mg ONCE ONCE IVP 05/05/20 19:00 05/05/20 19:01 DC 05/05/20 19:10 8 MG Vital Signs/I&O 05/05/20 18:50 Temp 36.6 Pulse 101 Resp 20 B/P (MAP) 129/79 (96) Pulse Ox 98 Capillary Refill : Diagnostic Imaging Diagonstic Imaging: Xray Plain Films/CT/US/NM/MRI: chest Comments NAME: [facility] REC#: [id number] PT STATUS: REG ER : 1995 PHYSICIAN: DEZ DURAN NUTRITIONIST ADMIT DATE: 05/05/20/ER Signed Date of Exam:05/05/20 CHEST 1 VIEW, AP/PA ONLY Indication: Cough and dyspnea with pharyngitis and chest pain Comparison is made study of 03/24/2019. FINDINGS: Heart size and pulmonary vasculature are within normal limits, and the lungs are clear, bilaterally. IMPRESSION: Unremarkable chest. Dictated by: Dictated on workstation # [id number] Dict: 05/05/201933 Trans: 05/05/201934 [id number] Interpreted by: JOSE PABLO MD Electronically signed by: JOSE PABLO MD 05/05/201934 Departure Impression Primary Impression: Viral syndrome Disposition: HOME, SELF-CARE Condition: Stable Departure-Patient Inst. Decision time for Depature: 19:32 Referrals: JAYLA SMITH MD (PCP/Family) Primary Care Physician Patient Instructions: Viral Syndrome (DC) Add. Discharge Instructions: Hdcs-[id number] cough and cold medications are fine to use. Drink plenty of fluids. You can use the nasal decongestant spray up to twice a day for up to 3 days. Do not use it more than this. Work/School Note: Work Release Form Date Seen in the Emergency Department: May 05, 2020 Return to Work: May 07, 2020 DEZ DURAN APRN May 05, 2020 18:54
[2020-05-05] MEDS ORDERED: ONDANSETRON 4 MG/2 ML (SDV) Z0FRAN ONE (18:56)
[2020-05-05] MEDS ORDERED: IBUPROFEN 800 MG (MOTRIN) TAB PO ONE ×2 (18:56→19:00)
[2020-05-05] MEDS ORDERED: OXYMETAZOLINE (AFRIN) 0.05% NA 30 ML BTL ONE (18:56)
[2020-05-05] MEDS ORDERED: ONDANSETRON 4 MG/2 ML (SDV) Z0FRAN IVP ONE (19:00)
[2020-05-05 19:11] LABS: BASOPHILS % (AUTO) 0 % (0-10); EOSINOPHILS # (AUTO) 0.3 10^3/uL (0.0-0.3); EOSINOPHILS % (AUTO) 3 % (0-10); HEMATOCRIT 43 % (35-52); HEMOGLOBIN 13.8 g/dL (11.5-16.0); LYMPHOCYTES # (AUTO) 3.1 10^3/uL (1.0-4.0); LYMPHOCYTES % (AUTO) 34 % (12-44); MEAN CORPUSCULAR HEMOGLOBIN 27 pg (25-34); MEAN CORPUSCULAR HGB CONC 33 g/dL (32-36); MEAN CORPUSCULAR VOLUME 84 fL (80-99); MEAN PLATELET VOLUME 9.7 fL (9.0-12.2); MONOCYTES # (AUTO) 0.4 10^3/uL (0.0-1.0); MONOCYTES % (AUTO) 5 % (0-12); NEUTROPHILS # (AUTO) 5.3 10^3/uL (1.8-7.8); NEUTROPHILS % (AUTO) 58 % (42-75); PLATELET COUNT 320 10^3/uL (130-400); WHITE BLOOD COUNT 9.1 10^3/uL (4.3-11.0)
[2020-05-05 19:22] LABS: ALBUMIN 4.1 GM/DL (3.2-4.5); CHLORIDE 105 MMOL/L (98-107); POTASSIUM 3.7 MMOL/L (3.6-5.0); SODIUM 140 MMOL/L (135-145)
[2020-05-05 19:23] LABS: CALCIUM 9.3 MG/DL (8.5-10.1)
[2020-05-05 19:24] LABS: GLUCOSE 96 MG/DL (70-105); TOTAL PROTEIN 7.6 GM/DL (6.4-8.2)
[2020-05-05 19:25] LABS: CARBON DIOXIDE 28 MMOL/L (21-32)
[2020-05-05 19:26] LABS: BILIRUBIN,TOTAL 0.3 MG/DL (0.1-1.0)
[2020-05-05 19:28] LABS: ALKALINE PHOSPHATASE 102 U/L (40-136); CREATININE SERUM 0.85 MG/DL (0.60-1.30); GFR ESTIMATED > 60
[2020-05-05 19:29] LABS: BUN/CREATININE RATIO 11
[2020-05-05 19:31] LABS: ALANINE AMINOTRANSFERASE 13 U/L (0-55)
--- NOTE | 2020-05-05 19:36 | Diagnostic Imaging Report ---
Indication: Cough and dyspnea with pharyngitis and chest pain Comparison is made study of 03/24/2019. FINDINGS: Heart size and pulmonary vasculature are within normal limits, and the lungs are clear, bilaterally. IMPRESSION: Unremarkable chest. Dictated by: Dictated on workstation # [id number]
[2020-05-05 20:15] VITALS: BP 111/79
[2020-05-05] MEDS ORDERED: OXYMETAZOLINE (AFRIN) 0.05% NA 30 ML BTL SCH (21:00)
== END 2020-05-05 20:10 | disposition home or self-care (01) ==
LOC: EDUNIT# 18:39 → ER 18:41
DX: B34.9 Viral infection, unspecified (principal); Z20.822 Contact with and (suspected) exposure to COVID-19; Z87.891 Personal history of nicotine dependence
CPT/HCPCS: 71045; 80053; 84145; 84484; 84703; 85025; 85379; 86141; 87804; 99283; U0002; 36415; 87635

== ENCOUNTER 2020-11-08 00:36 | Emergency (ER) | payer MEDICAID ==
[~2020-11-08] VITALS: Ht 170 cm; Wt 122.0 kg
[~2020-11-08 00:36] MED LIST changes: +QUET25TA34; -QUET25TA73
--- NOTE | 2020-11-08 01:04 | ED Cough/URI ---
General Chief Complaint: Cough/Cold/Flu Symptoms Stated Complaint: SOB,LOSS OF TASTE/SMELL,BODY ACHES,HEADACHE Source: patient History of Present Illness Date Seen by Provider: Nov 08, 2020 Time Seen by Provider: 00:41 Initial Comments PT ARRIVES VIA POV FROM HOME C/O COUGH C/O NASAL CONGESTION C/O SORE THROAT C/O LOSS OF TASTE AND SMELL C/O MILD SHORTNESS OF BREATH C/O HEADACHE--HAS CHRONIC HEADACHES C/O BODY ACHES C/O FEVER--TEMP 101.3 TONIGHT--TOOK TYLENOL PRIOR TO ARRIVAL NO NAUSEA / NO VOMITING / NO CHANGE IN CHRONIC DIARRHEA SINCE CHOLECYSTECTOMY HAS NOT HAD COVID-19 VACCINE NO KNOWN SICK CONTACTS 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 CHILD LMP--NOW NO CHRONIC ILLNESS PCP; DR. SMITH Allergies and Home Medications Allergies Coded Allergies: No Known Drug Allergies (Unverified , 10/04/08) Home Medications Duloxetine HCl 60 Mg Capsule.dr, 60 MG PO BID, (Reported) Patient Home Medication List Home Medication List Reviewed: Yes Review of Systems Review of Systems Constitutional: see HPI, fever EENTM: see HPI Respiratory: see HPI, cough Cardiovascular: no symptoms reported Gastrointestinal: no symptoms reported Genitourinary: no symptoms reported Musculoskeletal: see HPI (BODY ACHES) Skin: no symptoms reported Psychiatric/Neurological: See HPI, Headache Past Fwbgwds-Enfazz-Tuowbf Hx Patient Social History Tobacco Use?: Yes (SMOKES 1/2 PPD) Tobacco type used: Cigarettes Smoking Status: Current Someday Smoker Use of E-Cig and/or Vaping dev: Yes E-Cig or Vaping type used: Nicotine Use of E-Cig and/or Vaping Kenny: Current Everyday User Substance use?: Yes (METH, THC) Substance type: Methamphetamine, Marijuana Additional substance use comme: SMOKES METH, THC BY HISTORY Alcohol Use?: Yes Alcohol Frequency: Several times a month Immunizations Up To Date Tetanus Booster (TDap): Less than 5yrs PED Vaccines UTD: Yes Influenza Vaccine Up-to-Date: No; Not Current Seasonal Allergies Seasonal Allergies: Yes Past Medical History Surgery/Hospitalization HX: FUSION C3-C7 NEUROFIBROMAS REMOVED FROM NECK CHOLECYSTECTOMY WISDOM TEETH REMOVED Surgeries: Yes (WISDOM TEETH REMOVED; NEUROFIBROMA REMOVED FROM NECK; FUSION OF C3-C7) Gallbladder, Neurological, Orthopedic Respiratory: No Cardiac: No Neurological: Yes (NEUROFIBROMAS; ) Headaches /Migraines Reproductive Disorders: No Female Reproductive Disorders: Denies Sexually Transmitted Disease: No HIV/AIDS: No Genitourinary: Yes UTI-Chronic Gastrointestinal: Yes (S/P CHOLECYSTECTOMY) Gall Bladder Disease Musculoskeletal: Yes (C3-C7 FUSION) Endocrine: Yes (MORBID OBESITY) HEENT: No (WISDOM TEETH REMOVED) Cancer: No Psychosocial: Yes Anxiety, Depression Integumentary: No Blood Disorders: No Adverse Reaction/Blood Tranf: No Family Medical History Patient reports no known family medical history. Physical Exam Vital Signs - First Documented 11/08/20 00:43 Temp 36.7 Pulse 106 Resp 18 B/P (MAP) 129/80 (96) Pulse Ox 99 O2 Delivery Room Air Capillary Refill : Height: 5'7.00" Weight: 228lbs. 4.0oz. 103.851465yk; 42.00 BMI Method:Stated General Appearance: WD/WN, no apparent distress, other (DOES NOT APPEAR ILL OR TO BE IN ANY DISCOMFORT OR DISTRESS) HEENT: PERRL/EOMI, normal ENT inspection, TMs normal, pharynx normal, other (MILD NASAL CONGESTION) Neck: normal inspection Respiratory: normal breath sounds, no respiratory distress, no accessory muscle use Cardiovascular: regular rate, rhythm, no murmur Gastrointestinal: non tender, soft Extremities: normal inspection, normal capillary refill Neurologic/Psychiatric: msws II-XII nml as tested, no motor/sensory deficits, alert, normal mood/affect, oriented x 3 Skin: normal color, warm/dry Progress/Results/Core Measures Suspected Sepsis SIRS Temperature: Pulse: Respiratory Rate: Blood Pressure / Mean: Results/Orders Lab Results Laboratory Tests Test 11/08/20 00:47 Range/Units SARS-CoV-2 RNA (RT-PCR) Not Detected Not Detecte My Orders Orders - DEENA LANCE DO Covid 19 Inhouse Test (11/08/20 00:40) Vital Signs/I&O 11/08/20 11/08/20 00:43 00:43 Temp 36.7 Pulse 106 Resp 18 B/P (MAP) 129/80 (96) Pulse Ox 99 O2 Delivery Room Air Room Air Capillary Refill : Progress Note : Progress Note PLACED IN ISOLATION ROOM PPE WORN AT ALL TIMES COVID-19 TESTING PERFORMED PT ADVISED OF NEED FOR QUARANTINE AND NEED FOR RETESTING IN 2-3 DAYS Departure Impression Primary Impression: COVID LIKE ILLNESS Additional Impression: Person under investigation for COVID-19 Disposition: 01 HOME, SELF-CARE Condition: Stable Departure-Patient Inst. Referrals: JAYLA SMITH MD (PCP/Family) Primary Care Physician Patient Instructions: COVID-19 (DC), Recovery After COVID-19, Preventing the Spread of an Infectious Disease Add. Discharge Instructions: LOTS OF CLEAR LIQUIDS--WATER, BROTH, JELLO, GATORADE TYLENOL 1 GRAM/ MOTRIN 800 MG 4 TIMES A DAY FOR PAIN OR FEVER OVER THE COUNTER MEDICATIONS FOR COUGH AND CONGESTION SUCH MUCINEX DM QUARANTINE YOURSELF AND ALL HOUSEHOLD AND CLOSE CONTACTS FOR THE NEXT 2 WEEKS--NO ONE ENTERS OR LEAVES YOUR HOME FOR THE NEXT 2 WEEKS YOU NEED TO BE RE-TESTED IN 2-3 DAYS --YOU MAY GO TO [facility] [address] THRU TESTING FOLLOW UP WITH YOUR DR IN 5-7 DAYS IF NO BETTER, RETURN TO ER IF WORSE All discharge instructions reviewed with patient and/or family. Voiced understanding. DEENA LANCE DO Nov 08, 2020 01:04
[2020-11-08 01:48] VITALS: BP 129/80
== END 2020-11-08 01:49 | disposition home or self-care (01) ==
LOC: EDUNIT# 00:36 → ER 00:38
DX: Z20.822 Contact with and (suspected) exposure to COVID-19 (principal); E66.01 Morbid (severe) obesity due to excess calories; F41.9 Anxiety disorder, unspecified; F32.9 Major depressive disorder, single episode, unspecified; F17.210 Nicotine dependence, cigarettes, uncomplicated; Z68.41 Body mass index [BMI] 40.0-44.9, adult; Z79.899 Other long term (current) drug therapy
CPT/HCPCS: 87636; 99282